=== PATIENT | female | born 1970 | race Caucasian/White ===

== ENCOUNTER 2019-06-17 23:53 | Emergency (ER) | payer BC, SELFPAY ==
--- NOTE | ~2019-06-17 | CT_ITS ---
EXAMINATION: CT abdomen pelvis w con DATE: 06/18/2019 00:58 INDICATION: Lower abdominal pain. TECHNIQUE: Computed tomography (CT) of the abdomen and pelvis was performed with 100 mL Omnipaque 350 intravenous contrast. Automated exposure control and iterative reconstruction technique were employe d. The dose-length product was 1182.55 mGy-cm. COMPARISON: None. FINDINGS: The visualized portions of the lung bases demonstrate mild atelectasis. No pleural effusion . The heart size is normal. No pericardial effusion. Pectus excavatum is noted. There is a 9 mm hypoa ttenuated mass in the liver, likely benign. The gallbladder, spleen, pancreas, adrenal glands, and ri ght kidney are normal. There is severe atrophy of left kidney. There are no dilated loops of bowel. T he appendix is not visualized. There are no pathologically enlarged lymph nodes. There is trace pelvi c ascites. There is mild lumbar spondylosis and moderate thoracic spondylosis. IMPRESSION: 1. Severe atrophy of left kidney. Reviewed, dictated and finalized at location A.
[2019-06-17 23:57] VITALS: BP 151/91; PULSE 78; RESP 18; TEMP 36.3; O2SAT 98
--- NOTE | 2019-06-18 00:18 | ED.ABDPAIN ---
HPI - Abdominal Pain General Chief Complaint: Abdominal Pain Stated Complaint: abd pain Time Seen by Provider: 06/18/19 00:17 Source: patient Mode of arrival: ambulatory Limitations: no limitations History of Present Illness HPI narrative: Patient is a 48-year-old female who presents for evaluation of lower abdominal pain. Patient reports acute onset of pain approximately 4 hours ago. Patient reports pain in the lower part of her abdomen with radiation to her back. Pain initially started on the left lower abdomen, suprapubic area, now pain does not seem to be quite as severe. Initially described as sharp, stabbing in nature. No associated fever, chills, nausea or vomiting. No diarrhea or constipation. Patient had a normal bowel movement earlier this evening. No abdominal distention. Patient does have a history of ovarian cysts. Related Data Allergies Allergy/AdvReac Type Severity Reaction Status Date / Time No Known Allergies Allergy Verified 06/18/19 00:06 Review of Systems Review of Systems: Narrative: CONSTITUTIONAL: Denies fever, chills, or sweats. ENT: Denies rhinorrhea, congestion, sore throat, or otalgia. CARDIOVASCULAR: Denies chest pain, palpitations, or edema. RESPIRATORY: Denies cough or dyspnea. GASTROINTESTINAL: Reports lower abdominal pain, denies nausea, vomiting or diarrhea GENITOURINARY: Denies dysuria or hematuria. SKIN: Denies rash or itching. MUSCULOSKELETAL: Denies back pain, joint pain, or myalgia. NEUROLOGIC: Denies headache, numbness, or weakness. [facility] Past Medical History Medical History Ovarian cyst Surgical History Surgical History History of hysterectomy Social History Social History (Updated 06/18/19 @ 00:34 by Kassie Finney MD) Smoking status: Never smoker Alcohol intake: never Substance use: never Living arrangements: with family Gender identity (if verbalized by the patient): Female Exam Narrative: Exam Narrative: GENERAL: Awake, alert, conversant HEAD: Normocephalic, atraumatic. EYES: PERRLA and EOMI. ENT: Nares clear, no rhinorrhea or epistaxis. Mucous membranes moist. NECK: Supple. CHEST: No respiratory distress, breathing even and non labored HEART: Regular rate, sinus rhythm ABDOMEN:Non distended, not severely tender on exam, nonrigid, no guarding EXTREMITIES: Normal range of motion. No edema. SKIN: Warm, dry, no rash. NEURO:No focal deficits. Alert and oriented x3 Course Vital Signs Vital signs: Vital Signs Temperature 36.3 C L 06/17/19 23:57 Pulse Rate 78 06/17/19 23:57 Respiratory Rate 18 06/17/19 23:57 Blood Pressure 151/91 H 06/17/19 23:57 Pulse Oximetry 98 06/17/19 23:57 Temperature 36.3 C L 06/17/19 23:57 Pulse Rate 78 06/17/19 23:57 Respiratory Rate 18 06/17/19 23:57 Blood Pressure 151/91 H 06/17/19 23:57 Pulse Oximetry 98 06/17/19 23:57 MDM - Abdominal Pain MDM Narrative Medical decision making narrative: Patient's abdomen is soft without significant pain or signs of surgical abdomen on serial exams. Lab and imaging evaluations are reviewed and patient is felt to be a reasonable candidate for outpatient management. Patient was instructed as to limitations of imaging and lab evaluation and encouraged to return to the emergency department her primary physician for repeat exam in 12 hours if continued or worsening pain. Pain may be due to nonspecific gastritis, abdominal cramping pain. No UTI. Patient was discharged home, advised to return should her symptoms recur or worsen. Differential Diagnosis Differential diagnosis: Likely abdominal pain, calculus of kidney, constipation, diverticulitis, gastroenteritis and small bowel obstruction Lab Data Attestation: I reviewed the patient's lab results. Result diagrams: 06/18/19 00:16 06/18/19 00:17 Labs: Lab Results 05
[2019-06-18 00:23] LABS: Basophils Absolute Auto 0.1 K/mm3 (0.0-0.1); Basophils Percent Auto 0.7 % (0.2-1.2); Eosinophils Absolute Auto 0.1 K/mm3 (0-0.3); Eosinophils Percent Auto 1.6 % (0-4.4); Hematocrit 39.9 % (37.0-47.0); Hemoglobin 13.5 g/dL (12.0-15.0); Immature Granulocyte Absolute 0.02 K/mm3 (0.00-0.031); Immature Granulocyte Percent A 0.2 % (0-0.5); Lymphocytes Percent Auto 29.7 % (18.3-44.2); Mean Corpuscular HGB Conc 33.8 g/dl (32-36); Mean Corpuscular Hemoglobin 31.4 pg (26-34); Mean Corpuscular Volume 92.8 fl (80-100); Mean Platelet Volume 10.3 fl (7.4-10.4); Monocytes Absolute Auto 1.4 K/mm3 (0.1-0.6); Monocytes Percent Auto 16.4 % (2.6-8.5); Neutrophils Absolute Auto 4.5 K/mm3 (1.3-6.7); Neutrophils Percent Auto 51.4 % (45.5-73.1); Platelet Count Result 332 k/mm3 (150-375); Red Cell Distribution Width 12.9 % (11.5-14.5); White Blood Count 8.7 K/mm3 (4.5-10.0)
[2019-06-18] MEDS: SODIUM CHLORIDE 0.9% IV 1,000 ML 999 ML IV CONT (00:30)
[2019-06-18] MEDS: ONDANSETRON INJ 4 MG/2 ML VIAL IV PUSH (00:31)
[2019-06-18] MEDS: MORPHINE SULFATE 4 MG/ML INJ IV PUSH (00:31)
[2019-06-18 00:34] LABS: Add Urine Microscopic? YES; Amorphous Sediment Urine Few; Appearance Urine Cloudy (Clear); Bacteria Urine 1+ /hpf; Bilirubin Urine Negative (Negative); Blood Urine Negative (Negative); Color Urine Yellow (Yellow); Glucose Urine UA Negative (Negative); Ketones Urine Negative (Negative); Leukocyte Esterase Ur Negative LEU/UL (Negative); Mucus Urine Rare /lpf; Nitrate Urine Negative (Negative); Protein Urine 1+ mg/dL (Negative); RBC Urine 0-2 /hpf (0-2); Specific Grav Ur 1.018 (1.001-1.035); Squamous Epithelial Cell Urine Many /hpf (Few); Urobilinogen Urine Negative mg/dL (<2.0); WBC Urine 0-3 /hpf
[2019-06-18 00:38] LABS: Alanine Aminotransferase 15 U/L (4-35); Albumin Level 3.8 g/dL (3.5-5.1); Alkaline Phosphatase 79 U/L (38-126); Aspartate Amino Transferase 24 U/L (14-36); Bilirubin,Total 0.3 mg/dL (0.2-1.3); Blood Urea Nitrogen 15 mg/dL (7-17); Calcium 8.8 mg/dL (8.4-10.2); Carbon Dioxide 26 mmol/L (22-30); Chloride 105 mmol/L (98-107); Estimated CRCL calculation 79 ml/min; Estimated Glomerular Filt Rate > 60; Glucose 98 mg/dL (65-105); Lipase 92 U/L (23-300); Potassium 3.9 mmol/L (3.4-5.0); Sodium 136 mmol/L (137-145)
--- NOTE | 2019-06-18 02:10 | PC.NURSE ---
Patient requesting more pain medication prior to being discharged, Dr Finney aware. Verbal order for Percocet 5/325 received.
[2019-06-18 02:15] VITALS: BP 124/70; PULSE 66; RESP 18; O2SAT 98
== END 2019-06-18 02:16 | disposition home or self-care (01) ==
PROVIDERS: Emergency Provider Emergency Medicine; PCP Family Medicine
DX: R10.84 Generalized abdominal pain (principal)
CPT/HCPCS: 36415; 74177; 80053; 81001; 83690; 85025; 96361; 96365; 96375; 99284; A9270; J0131; J2270; J2405; J7030; Q9967

== ENCOUNTER → 2020-01-11 16:23 | Outpatient (CLI) | payer BC, SELFPAY ==
--- NOTE | ~2020-01-11 | US_ITS ---
EXAMINATION: US thyroid DATE: 01/11/2020 16:45 INDICATION: Nontoxic goiter. TECHNIQUE: Multiple ultrasound images of the thyroid were obtained. COMPARISON: None. FINDINGS: The right thyroid lobe measures 5.1 x 1.7 x 1.4 cm. The left thyroid lobe measures 4.8 x 1.4 x 1.5 c m. In the right thyroid lobe, there is a 5 mm solid, hyperechoic, xifku-tezi-yksu nodule with smooth margin and macrocalcification (TI-RADS TR4). IMPRESSION: 1. Small right thyroid nodule, likely not clinically significant. No follow-up is needed. Reviewed, dictated and finalized at location A. E I INSTRUCTIONAL ASSISTANT
== END ==
PROVIDERS: PCP Family Medicine; Visit Provider Family Medicine
DX: E04.9 Nontoxic goiter, unspecified (principal)
CPT/HCPCS: 76536

== ENCOUNTER → 2020-09-30 10:43 | Outpatient (CLI) | payer BC, SELFPAY ==
--- NOTE | ~2020-09-30 | MR_ITS ---
EXAMINATION: MR abdomen wo/w con DATE: 09/30/2020 12:16 INDICATION: Liver mass. TECHNIQUE: Magnetic resonance imaging (MRI) of the abdomen was performed without and with 19 mL Multi Katrin intravenous contrast. Sequences included coronal T2-weighted FS FSE, coronal and axial FS FIEST A, axial T2-weighted FSE, coronal LAVA-flex, axial STIR FSE, axial DWI, axial dual-echo T1-weighted F SPGR, and axial LAVA. Postcontrast sequences included coronal LAVA-flex and a time course of axial LA VA. COMPARISON: CT abdomen and pelvis 06/18/2019 FINDINGS: There is a 15 mm mass in right hepatic lobe with interrupted peripheral puddling of contrast, consist ent with a hemangioma. The gallbladder, spleen, pancreas, adrenal glands, and right kidney are normal . There is severe atrophy of left kidney. There are no dilated loops of bowel. There are no pathologi mary enlarged lymph nodes. There is no free intraperitoneal fluid. IMPRESSION: 1. 15 mm hemangioma in the liver. Reviewed, dictated and finalized at location A.
--- NOTE | ~2020-09-30 | MR_ITS ---
EXAMINATION: MR brain/brain stem wo/w con DATE: 09/30/2020 12:16 INDICATION: Headache. Hypertension. TECHNIQUE: Magnetic resonance imaging (MRI) of the brain and brainstem was performed without and with 19 mL MultiHance intravenous contrast. Sequences included sagittal and axial T1-weighted FSE, axial diffusion-weighted FS EPI, axial T2*-weighted GRE, axial T2-weighted FLAIR Propeller, and axial T2-we ighted Propeller. Postcontrast sequences included axial, sagittal, and coronal T1-weighted FSE. Appar ent diffusion coefficient (ADC) maps were created. COMPARISON: Head CT 09/22/2020 FINDINGS: There is no acute ischemic infarct, intracranial hemorrhage, abnormal mass lesion. The vent ricles are normal in size. The mastoid air cells are normal. There is mucosal thickening in the paran harshil sinuses. The orbits are normal. IMPRESSION: 1. Normal brain. Reviewed, dictated and finalized at location A. IMPRESSION: 1. Normal brain.
[2020-09-30 11:10] LABS: Estimated Glomerular Filt Rate 58
== END ==
PROVIDERS: PCP Family Medicine; Visit Provider Family Medicine
DX: R51.9 Headache, unspecified (principal); R93.89 Abnormal findings on diagnostic imaging of other specified body structures; K76.9 Liver disease, unspecified; N26.1 Atrophy of kidney (terminal); I10 Essential (primary) hypertension; D18.03 Hemangioma of intra-abdominal structures
CPT/HCPCS: 70553; 74183; A9577

== ENCOUNTER → 2020-11-11 07:51 | Outpatient (CLI) | payer BC, SELFPAY ==
--- NOTE | ~2020-11-11 | US_ITS ---
EXAMINATION: US retroperitoneal duplex ltd DATE: 11/11/2020 08:34 INDICATION: Left renal atrophy TECHNIQUE: Multiple grayscale, color Doppler, and pulsed Doppler images of the kidneys and renal bonnie adarsh were obtained. COMPARISON: MRI dated 09/30/[address] dated 06/18/2019 FINDINGS: The aorta peak systolic velocity is 121 cm/s. The right renal artery peak systolic velocity is 88 cm/ s in the proximal segment, 139 cm/s in the mid segment, and 448 cm/s in the distal segment. The left renal artery is not visualized likely due to the chronic severe left renal atrophy. IMPRESSION: 1. Markedly elevated right renal artery peak systolic velocities consistent with a >50-60% stenosis. On review of prior CT and MRI studies there does not appear to be a corresponding hemodynamically si gnificant stenosis and the elevated velocities may be artifactual due to the tortuosity of the vessel s evident on prior imaging and increased flow due to the contralateral left renal atrophy with no dis cernible left renal artery. Reviewed, dictated and finalized at location B. IMPRESSION: 1. Markedly elevated right renal artery peak systolic velocities consistent wi th a >50-60% stenosis. On review of prior CT and MRI studies there does not sander ear to be a corresponding hemodynamically significant stenosis and the elevated velocities may be artifactual due to the tortuosity of the vessels evident on prior imaging and increased flow due to the contralateral left renal atrophy wi th no discernible left renal artery.
== END ==
PROVIDERS: PCP Family Medicine; Visit Provider Family Medicine
DX: N26.1 Atrophy of kidney (terminal) (principal); R93.422 Abnormal radiologic findings on diagnostic imaging of left kidney
CPT/HCPCS: 93976

== ENCOUNTER → 2020-12-17 13:30 | Outpatient (CLI) | payer BC, SELFPAY ==
--- NOTE | ~2020-12-17 | CT_ITS ---
EXAMINATION: CTA abdomen pelvis DATE: 12/17/2020 14:30 INDICATION: Atherosclerosis of the renal artery TECHNIQUE: Computed tomographic angiography (CTA) of the abdomen and pelvis was performed with 100 mL Omnipaque-350 intravenous contrast. Maximum intensity projection 3D-reconstructions of the aorta and other arteries were constructed by the technologist on a separate workstation. The dose-length produ ct (DLP) was 926.83 mGy-cm. Automated exposure control and iterative reconstruction technique were em ployed. COMPARISON: 06/18/2019 FINDINGS: Minimal dependent atelectasis is present in the lung bases. The heart size is normal. A sub tle 9 mm lesion in the posterior right hepatic lobe demonstrates peripheral nodular enhancement, cons istent with a hemangioma. The spleen, pancreas, gallbladder, and adrenal glands are normal. The right kidney is unremarkable. The left kidney is atrophic. No pathologically enlarged abdominal or pelvic lymph nodes are identified. There is no free intraperitoneal gas or evidence of bowel obstruction. Th ere is moderate lower thoracic spondylosis. A fat-containing umbilical hernia is noted. There is no aneurysm or dissection of the abdominal aorta. The right renal artery arises directly fro m the celiac axis. The pancreaticoduodenal artery arises from the left hepatic artery. The superior m esenteric artery and inferior mesenteric artery are unremarkable. A single right renal artery is pres ent. There is no significant atherosclerosis or hemodynamically significant stenosis. No left renal a rtery is identified. The common, external, internal iliac arteries and femoral arteries are unremarka ble. IMPRESSION: 1. Chronic atrophy of the left kidney without an identifiable left renal artery. Otherwise unremarkab le CTA of the abdomen and pelvis. Reviewed, dictated and finalized at location B. HORSE HITCH DRIVER IMPRESSION: 1. Chronic atrophy of the left kidney without an identifiable left renal artery . Otherwise unremarkable CTA of the abdomen and pelvis.
[2020-12-17 13:49] LABS: Estimated Glomerular Filt Rate 52
== END ==
PROVIDERS: PCP Family Medicine
DX: I70.1 Atherosclerosis of renal artery (principal)
CPT/HCPCS: 74174; Q9967

== ENCOUNTER 2024-09-07 14:19 | Outpatient (CLI) | payer BC, SELFPAY ==
--- NOTE | ~2024-09-07 | MM_ITS ---
EXAMINATION: MM screening keegan BI w josue HISTORY: Screening TECHNIQUE: Craniocaudal and mediolateral oblique 3-D tomosynthesis images were obtained and synthetic 2-D images were generated. CAD analysis was submitted and interpreted. COMPARISON: No prior mammogram is available for comparison at this institution. BREAST PARENCHYMAL COMPOSITION: Not dense: There are scattered areas of fibroglandular density. FINDINGS: There is no mammographic evidence for malignancy in the right breast. There is a small low- density mass in the outer aspect of the left breast at approximately the 3:00 position, middle third. There are no suspicious calcifications or architectural distortion. There are changes of bilateral b reast reduction surgery. IMPRESSION: 1. Small low-density left breast mass. 2. Additional mammographic views and possible breast ultrasound are recommended. BI-RADS Category 0: Incomplete: Needs additional imaging evaluation. Reviewed, dictated and finalized at location B. IMPRESSION: 1. Small low-density left breast mass. 2. Additional mammographic views and possible breast ultrasound are recommended . BI-RADS Category 0: Incomplete: Needs additional imaging evaluation.
--- OUTSIDE RECORDS SUMMARY | 2024-09-07 14:22 | XMS_ITS | Clinical Summary ---
Author Organization [facility] Address [address] [address] Care Team Providers Care Subsurface Augmentee Operator Name Role Phone Unavailable Primary Care Provider Unavailabl e Source Comments [facility],non-owned Affiliates and Associated Physician Practices is amultiple site organization consisting of ambulatory clinics and hospital sitesin [place], [place], [place] and [place]. This disclosure is being madepursuant to the Care Everywhere program and may not contain all information available regarding this patient. Last updated 17.[facility] Social History Tobacco Use Types Packs/Day Years Used Date Smoking Tobacco: Never Assessed Comments Unknown Sex and Gender Information Value Date Recorded Sex Assigned at Not on file Legal Sex Female 9:56 AM CDT Gender Identity Not on file Sexual Orientation Not on file Plan of Treatment Health Maintenance Due Date Last Done Comments COLOGUARD (AGES 45-75) - COL ON CA SCREENING 1970 COLON MONITORING 1968 COLONOSCOPY - COLON CA SCREENING 1968 CT COLONOGRAPHY - COLON CA SCREENING 1970 Colorectal Cancer Screening 1970 FIT - COLON CA SCREENING 1968 FLEX SIG - COLON CA SCREENING 1968 LIPID TESTING 1970 MAMMOGRAM 1968 HIV SCREENING 08/02/1983 HEPATITIS C SCREENING 07/28/1986 DTAP/TDAP/TD VACCINES (1 - Tdap) 08/02/1987 HEPATITIS B VACCINE (1 of 3 - 19+ 3-dose series) 08/02/1987 PAP SMEAR 1989 PNEUMOCOCCAL VACCINE 50+ (1 of 1 - PCV) 2018 ZOSTER VACCINE (1 of 2) 2018 COVID-19 VACCINE (1 2023-2 5 season) 2023 DEPRESSION SCREENING 02/08/2024 INFLUENZA VACCINE (#1) 2024 HIB VACCINE Aged Out No longer eligi ble based on patient's age to complete this topic HPV VACCINE Aged Out No longer eligi ble based on patient's age to complete this topic MENINGOCOCCAL (Group B) VACC INE SHARED DECISION-MAKING Aged Out No longer eligibl e based on patient's age to complete this topic MENINGOCOCCAL GROUPS A/C/Y/W VACCINE Aged Out No longer eligible b ased on patient's age to complete this topic Insurance [facility] Address: [facility] [address] [place] [address]
--- OUTSIDE RECORDS SUMMARY | 2024-09-07 14:22 | XMS_ITS | Encounter Summary ---
Author Organization [facility] Address [address] [place] [address] Care Team Providers Care Motion Picture Printer Name Role Phone Dominique Lorenzo MD Primary Care Provider Encounter Details Date Type Department Care Team (Late st Contact Info) Description 04/03/2021 [facility], [address] [address] Camelia Moses MA Social History Tobacco Use Types Packs/Day Years Used Date Smoking Tobacco: Never Smokeless Tobacco: Never Alcohol Use Standard Drinks/Week Comments Yes 0 (1 standard drink = 0.6 oz pur e alcohol) occasional Comments Unknown Sex and Gender Information Value Date Recorded Sex Assigned at Not on file Legal Sex Female 8:21 PM CDT Gender Identity Not on file Sexual Orientation Not on file documented as of this encounter Plan of Treatment Not on file documented as of this encounter Procedures Procedure Name Priority Date/Time Associated Diagnosis Comments BASIC METABOLIC PANEL Routine 11/06/2020 D-DIMER, QUANTITATIVE Routine 11/06/2020 documented in this encounter Results * D-DIMER, QUANTITATIVE (11/06/2020) D-DIMER 0.36 11/06/2020 [facility] Final Result * BASIC METABOLIC PANEL (11/06/2020) SODIUM S/P/B 141 POTASSIUM S/P/B 4.5 CO2 26 CHLORIDE S/P/B 102 GLUCOSE 89 mg/dL CALCIUM S/P/B 9.5 BUN 13 CREATININE S/P/B 0.93 0.5 - 1.0 EGFR AFR. AMER. 82 <=90 EGFR NON-AFR. AMER. 71 <=90 11/06/2020 [facility] Final Result documented in this encounter Visit Diagnoses Not on filedocumented in this encounter Care Teams Motion Picture Printer Relationship Specialty Start Date End Date Dominique Lorenzo MD [address] [place] [address] PCP - General FAMILY PRACTICE 11/20/20 documented as of this encounter
--- OUTSIDE RECORDS SUMMARY | 2024-09-07 14:22 | XMS_ITS | Patient Health Record ---
Author Organization [facility] Address [address] [place] [address] Care Team Providers Care Manager Documentation Name Role Phone Dr. Dominique Lorenzo Primary Care Provider [phone] Jolanta Tavera Unavailable [phone] Migration, Provider Unavailable Unavailable Allergies No Known Allergies Results Component Value Reference Range Notes Strep Gp A, DNA Probe (Alere ) Reviewed date:04/16/2024 09:09:51 AM Interpretation:Negative Performing Lab: Notes/Report: Negative Reason For Referral No Information Medications Medication SIG (Take, Route, Frequency, Duration) Notes Start Date End Date Status Lisinopril 20 MG Tablet 1 tablet Oral da aisha; Duration: 90 days Active buPROPion HCl ER (XL) 300 MG Tablet Extended Release 24 Hour 1 tablet in the morning Orally Once a day; Duration: 90 days Active Levothyroxine Sodium 25 MCG Tablet 1 Oral every day; Duration: 90 days 10/13/2023 Active Simvastatin 10 MG Tablet 1 tablet Oral e very evening; Duration: 90 days 11/11/2023 Active Topiramate 25 MG Tablet 1 tablet at bedt sonia for 1 week and then increase 2 tablets Orally at bedtime; Duration: 30 days 07/27/2024 Active Estradiol 0.1 MG/24HR Patch Twice Weekly Transdermal; Duration: 84 Days Active Immunizations Vaccine Route Administration Date Status Comme nts Influenza, quadrivalent (IIV4), split virus, 6-35 months dosage IM Intramuscular 12/11/2020 Administered ,sourcename : N ew immunization record ,immstatus : Complete Influenza, quadrivalent (IIV4), split virus, 6-35 months dosage IM Intramuscular 12/02/2022 Administered ,sourcename : N ew immunization record ,immstatus : Complete Influenza, quadrivalent (IIV4), split virus, 6-35 months dosage Unknown 12/14/2023 Administered ,sourcename : Pharmacy Source C Code: : Pfizer-Biontech Covid-19 Vaccine 1st dose Unknown 03/14/2020 Administered ,sourcename : Historical information -from other registry Source VFC Code: : Pfizer-Biontech Covid-19 Vaccine 1st dose Unknown 04/11/2020 Administered ,sourcename : Historical information -from other registry Source VFC Code: : Shingrix Unknown 03/02/2020 Administered Shingrix Unknown 08/18/2020 Administered Tdap Unknown 01/06/2018 Administered ,sourcename : Historical information -from other registry Source VFC Code: : Social History Tobacco Use: Social History Observation Description Date Details (start date - stop date) Never Smoker NA - NA Social History Tobacco Use: Social Info Question Answer Notes Tobacco Control (Standard) Tobacco use: Nonsmoker Problems Problem Type SNOMED Code ICD Code Onset Dates Problem Status W/U Status Risk Notes Problem Hypothyroidism (18481785) Hypothyroidism , unspecified (E03.9) Active confirmed Problem Hyperlipidemia (21373423) Hyperlipidemia , unspecified (E78.5) Active confirmed Problem Recurrent oral aphthae (632151433) 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) Active confirmed Problem Thoracic spondylosis without myelopathy (357415995) Spondylosis without myelopathy or radiculopathy, thoracic region (M47.814) 020 Active confirmed noted on CT from 06/2019 Problem Cervicalgia (02135090) Cervicalgia (M54.2) 023 Active confirmed Problem Pain in right leg (802417597) Pain in right leg (M79.604) Active confirmed Problem Nephrosclerosis (54190785) 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) Active confirmed was referred to cardio and was to get evaled with MRIoptimized for lumenal stenosis Problem Abnormal findings on diagnostic imaging of breast (014607850) Other abnormal and inconclusive findings on diagnostic imaging of breast (R92.8) Active confirmed Problem Dietary management surveillance (067693451) Dietary counseling and surveillance (Z71.3) Active confirmed Problem Hormone replacement therapy (347536013) Hormone replacement therapy (postmenopausa l) (Z79.890) Active confirmed Problem Hemangioma of intra-abdominal structures (779647721) 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) Active confirmed Problem Depression (822796072) Depression, unspecified (F32.A) Active confirmed Problem Imaging result abnormal (974556386) Abnormal findings on diagnostic imaging of other specified body structures (R93.89) Active confirmed Problem Pain (56849293) Pain, unspecified (R52) Active confirmed Problem Hypertrophy of breast (437964825) Hypertrophy of breast (N62) Active confirmed Problem Acquired spondylolisthesis (857881932) Spondylolysis, 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) Active confirmed Problem Arthralgia of the ankle and/or foot (290422238) Pain in right ankle and joints of right foot (M25.571) Active confirmed Problem Pain of right knee region (finding) (487230291174298) Pain in right knee (M25.561) Active confirmed Problem Liver disease (352526691) Liver disease, unspecified (K76.9) Active confirmed Problem Essential hypertension (14817404) Essential (primary) hypertension (I10) Active confirmed Problem Major depression, single episode, in complete remission (67117062) Major depressive disorder, single episode, in full remission (F32.5) Active confirmed Vital Signs Heart Rate 84 /min 07/27/2024 Temperature 97.4 degrees Fahrenheit 07/27/2024 Respiratory Rate 18 /min 07/27/2024 Blood pressure diastolic 82 mm Hg 07/27/2024 Oximetry 98 % 07/27/2024 Height-cm 172.72 cm 07/27/2024 Weight-kg 97.61 kg 07/27/2024 Height 68.00 in 07/27/2024 Blood pressure systolic 134 mm Hg 07/27/2024 Weight 215.2 lbs 07/27/2024 BMI 32.72 kg/m2 07/27/2024 Encounters Encounter Location Date Provider Diagnosis [address] [address] 12/14/2023 Provider Migration [address] [address] 02/03/2024 Dr. Dominique Lorenzo Essential (primary) hypertension I10 ; Hyperlipidemia, unspecified E78.5 ; Hypothyroidism, unspecified E03.9 ; Prediabetes R73.03 ; Acute cough R05.1 and Acute non-recurrent sinusitis, unspecified location J01.[address] [address] 04/16/2024 Jolanta Tavera Acute sore throat J02.[address] [address] 07/27/2024 Jolanta Tavera Essential (primary) hypertension I10 ; Wellness examination Z00.00 ; Hyperlipidemia, unspecified E78.5 ; Hypothyroidism, unspecified E03.9 ; Prediabetes R73.03 ; Weight gain R63.5 and Menopausal symptom N95.[address] [address] 01/07/[address] [address] 01/08/[address] [address] 07/06/2024 Dr. Dominique Lorenzo Hypothyroidism, unspecified E03.9 ; Hyperlipidemia, unspecified E78.5 ; Essential (primary) hypertension I10 ; Liver disease, unspecified K76.9 and Encounter for general adult medical examination without abnormal findings Z00.00 Assessments Encounter Date Diagnosis (ICD Code) Assessment Notes Treatment Notes Treatment Clinical Notes Section Notes 04/16/2024 Acute sore throat (ICD-10 - J02.9) Sore throat for a few days. Strep test is negative. Discussed mtaht most likley she has a viral illness that will start to improve after 4-5 days. May treat sx's w/OTC medication. Will give one time dose of dex to treat pharyngitis. 07/06/2024 Hypothyroidism, unspecified (ICD-10 - E03.9) 02/03/2024 Hyperlipidemia, unspecified (ICD-10 - E78.5) 02/03/2024 Essential (primary) hypertension (ICD-10 - I10) [facility] [place] 07/27/2024 Essential (primary) hypertension (ICD-10 - I10) -BP is controlled at this time. Continue lisinopril m 07/27/2024 Wellness examination (ICD-10 - Z00.00) -Routine wellness exam, reviewed labwork - Colonoscopy up to date as of November 2023 - Due for mammogram following breast reduction surgery in December 2024 02/03/2024 Hypothyroidism, unspecified (ICD-10 - E03.9) 07/27/2024 Hyperlipidemia, unspecified (ICD-10 - E78.5) -Tolerating simvastatin. No changes needed 07/06/2024 Hyperlipidemia, unspecified (ICD-10 - E78.5) 07/06/2024 Essential (primary) hypertension (ICD-10 - I10) 02/03/2024 Prediabetes (ICD-10 - R73.03) 07/27/2024 Hypothyroidism, unspecified (ICD-10 - E03.9) -Levothyroxine 25mcg 07/27/2024 Prediabetes (ICD-10 - R73.03) -Last A1c was 5.7 and improved to 5.4 -Continue to work on [employer] 02/03/2024 Acute cough (ICD-10 - R05.1) 07/06/2024 Liver disease, unspecified (ICD-10 - K76.9) 07/06/2024 Encounter for general adult medical examination without abnormal findings (ICD-10 - Z00.00) 02/03/2024 Acute non-recurrent sinusitis, unspecified location (ICD-10 - J01.90) 07/27/2024 Weight gain (ICD-10 - R63.5) - Weight gain and difficulty losing weight, likely multifactorial with possible contribution from stress, menopause, and current medications. - Initiate topiramate 25 mg at bedtime for one week, then increase to 50 mg at bedtime. Trial for three months to assess efficacy and tolerability. Monitor for side effects. Discussed other pharmacologic options (semaglutide, tirzepatide, metformin, naltrexone, bupropion, but not recommended phentermine or Qsymia due to blood pressure medication). -Encouraged lifestyle modifications including increased physical activity, dietary changes, stress management, and use of motivational resources (e.g., podcasts). m 07/27/2024 Menopausal symptom (ICD-10 - N95.1) - Ongoing hot flashes, mood changes, fatigue, and weight gain possibly related to menopause and current estrogen dose. Ovaries likely no longer producing estrogen. - Consideration of adjusting estradiol dose or formulation. Recommendation to consult collection card clerk (Rena Velazquez at [place]) regarding possible dose adjustment or alternative hormone therapy options (including testosterone or progesterone pellets if interested). Plan to eventually taper off estrogen in the future. m 02/03/2024 Other Post-surgical recovery from breast reduction: - Recovery from breast reduction surgery on December 29, 2023, is progressing well. Pain is managed with ibuprofen and Tylenol, with minimal use of oxycodone. Some numbness and scar tissue present, with a lump and skin bubbles noted. - Continue scar massage. Monitor for changes in scar tissue and skin bubbles. Persistent cough and congestion: - Persistent cough and congestion likely due to sinusitis or atypical pneumonia, possibly exacerbated by post-surgical narcotics use and potential micro-aspiration. - Prescribe augmentin for sinus infection and potential aspiration issues from post anesthesia time. Use nasal steroid spray (flonase) to alleviate sinus congestion. Follow-up if symptoms persist beyond two weeks or worsen. - Risks and side effects: Potential for diarrhea or yeast infection from augmentin. Patient advised to contact if side effects occur. Pre-diabetes: - A1C level of 5.7% in July 2023 indicates pre-diabetes. - Order labs to monitor A1C and fasting sugar levels. Labs to be done at patient's convenience, fasting preferred but not required. Medication management: - Current medications include lisinopril and estradiol patch. No issues reported with current regimen. - Provide three-month supply with additional refills to ensure continuity. Schedule follow-up appointment in July 2024. Vaccinations: - Up-to-date on flu vaccine. Shingles vaccine status unclear. - Verify shingles vaccine status through state system or [place]. Offer vaccine in future if not previously administered. Could have gotten it at [facility] possibly. Prescription - augmentin, large pill, for 10 days. Side effects: potential diarrhea, yeast infection. Instructions: take with food. - flonase nasal steroid spray, for eustachian tube and sinus relief. - Refills for all current medications sent to [facility] in [place], with a year's supply provided. Appointments - Follow-up appointment planned for July 2024. Plan Of Treatment Next Appt Details Provider Name:Jolanta dillard, 01/11/2025 09:00:00 AM, [address], [place], [address], [phone] Insurance Providers Payer Name Payer Address Payer Phone Subscriber Number Group Number Insured Name Patient Relationship to Insured Coverage Start Date Coverage End Date [employer] [address] [place] [address] [id number] Alaina Escalera Self - patient is the insured 2 Medical (General) History Medical History History ICD Code Hypothyroidism, unspecified E03.9 Hyperlipidemia, unspecified E78.5 Major depressive disorder, single episod e, in full remission F32.5 Essential (primary) hypertension I10 Liver disease, unspecified K76.9 Spondylolysis, lumbar region M43.06 Spondylosis without myelopathy or radicu lopathy, thoracic region M47.814 Cervicalgia M54.2 Atrophy of kidney (terminal) N26.1 Hypertrophy of breast N62 Hormone replacement therapy (postmenopau christina) Z79.890 Hemangioma of intra-abdominal structures D18.03 Recurrent oral aphthae K12.0 Pain in right knee M25.561 Pain in right ankle and joints of right foot M25.571 Pain in right leg M79.604 Pain, unspecified R52 Other abnormal and inconclusive findings on diagnostic imaging of breast R92.8 Dietary counseling and surveillance Z71. 3 Abnormal findings on diagnostic imaging of other specified body structures R93.89 Depression, unspecified F32.A Surgical History Surgery Date(Month/Year) Hysterectomy (partial) 12/20/2019 breast reduction surgery 12/29/2023 ANKLE ARTHROSCOPY/SURGERY left ankle fus ion-pin- as child
--- OUTSIDE RECORDS SUMMARY | 2024-09-07 14:22 | XMS_ITS | Encounter Summary ---
Author Organization [facility] Address [address] [place] [address] Care Team Providers Care [employer] Registrar Name Role Phone Unavailable Primary Care Provider Unavailabl e Encounter Details Date Type Department Care Team (Late st Contact Info) Description 11/05/2021 Lab Requisition [facility] [address] [place] [address] Otto Griffin MD [facility] DERMAT[facility] [address] [place] [phone] Social History Tobacco Use Types Packs/Day Years [...] Procedure Name Priority Date/Time Associated Diagnosis Comments DERMATOPATHOLOGY Routine 11/04/2021 12:0 0 AM CDT documented in this encounter Results * DERMATOPATHOLOGY (11/04/2021 12:00 AM CDT) Case Report Dermatopathology Report Case: [id number] Authorizing Provider: Otto Griffin MD Collected: 11/04/2021 12:00 AM Ordering Location: [facility] Lab Received: 11/05/2021 10:10 AM Pathologist: Dara Whitney MD Specimen: Skin, left superior chest 09/30/202 2 4:17 PM CDT DERMATOPATHOLOGY LABORATORY Final Diagnosis Specimen A. SKIN, left superior chest: CHRONIC PERIFOLLICULITIS (L73.8) 2 4:17 PM CDT DERMATOPATHOLOGY LABORATORY at 1617 CDT Clinical History Basal Cell Carcinoma 2 4:17 PM CDT DERMATOPATHOLOGY LABORATORY Gross Description Specimen A: Received is one formalin filled container labeled with the patient's name and designated left superior chest. The specimen consists of a shave biopsy measuring [id number]. Jar 0. 2 4:17 PM CDT DERMATOPATHOLOGY LABORATORY Microscopic Description Specimen A. SKIN, left superior chest: Sections show a perifollicular lymphohistiocytic infiltrate. 2 4:17 PM CDT DERMATOPATHOLOGY LABORATORY Disclaimer An external and internal positive and negative controls are appropriate for the histochemical, immunohistochemical and immunofluorescence stain(s) in this case (if any), except where stated explicitly. The performance characteristics of the stain(s) cited in this report were developed and its performance characteristic determined by the Dermatopathology Laboratory at [facility], directed by Dr. Archana Whitney. These tests need not be, and therefore are not, approved by the [place] Food and Drug Administration. The tests are used for clinical purposes. Billing Codes Specimen Charges Stain Charges 55624 1 2 4:17 PM CDT DERMATOPATHOLOGY LABORATORY Embedded Images 2 4:17 PM CDT DERMATOPATHOLOGY LABORATORY Pathology/Cytolog y TISSUE SPECIMEN FROM SKIN / Unknown 11/04/2021 11/05/2021 10:10 AM CDT us Otto Griffin MD LAB - PATHOLOGY/CYTOLOGY OSITO GAMEZ Final Result DERMATOPATHOLOGY LABORATORY [facility] - Department of Dermatology [address] [place] [address], [facility] [phone] documented in this encounter Visit Diagnoses Not on filedocumented in this encounter
--- OUTSIDE RECORDS SUMMARY | 2024-09-07 14:22 | XMS_ITS | Clinical Summary ---
Author Organization [facility] Address [address] [place] [address] Care Team Providers Care Costumed Character Entertainer Name Role Phone Dominique Lorenzo MD Unavailable Dominique Lorenzo MD Primary Care Provider Allergies No known active allergies Medications buPROPion XL (WELLBUTRIN XL) 300 mg 24 hr tabletIndications:A nxiety with Depression Take 1 tablet (300 mg total) by mouth every morning 9 Active estradioL (VIVELLE-DOT) 0.1 mg/24 hrIndications:horom one Place 1 patch on the skin 2 (two) times a week 1 Active levothyroxine (SYNTHROID) 25 mcg tabletIndications:h ypothyroidism Take 1 tablet (25 mcg total) by mouth every morning 1 Active lisinopriL (PRINIVIL,ZESTRIL) 20 mg tabletIndications:h ypertension Take 1 tablet (20 mg total) by mouth every morning 1 Active simvastatin (ZOCOR) 10 mg tabletIndications:h yperlipidemia Take 1 tablet (10 mg total) by mouth nightly Active multivitamin tabletIndications:V itamin Deficiency Prevention Take 1 tablet by mouth every morning Active cholecalciferol, vitamin D3, (VITAMIN D3 ORAL)Indications:sherwood pplement Take 1 capsule by mouth every morning Active ascorbic acid (VITAMIN C ORAL)Indications:sherwood pplement Take 1 tablet/chew tab by mouth every morning Active oxyCODONE (ROXICODONE) 5 mg immediate release tabletIndications:P ain Take 1 tablet (5 mg total) by mouth every 4 (four) hours as needed for pain 20 tablet 4 Active acetaminophen (TYLENOL) 500 mg tablet Take 1 tablet (500 mg total) by mouth every 8 (eight) hours 60 tablet 1 4 Active ibuprofen (ADVIL,MOTRIN) 600 mg tablet Take 1 tablet (600 mg total) by mouth 3 (three) times a day 60 tablet 1 4 Active cyclobenzaprine (FLEXERIL) 10 mg tablet Take 1 tablet (10 mg total) by mouth 3 (three) times a day as needed for muscle spasms 20 tablet 4 Active ondansetron ODT (ZOFRAN-ODT) 4 mg disintegrating tablet Take 1 tablet (4 mg total) by mouth every 8 (eight) hours as needed for nausea or vomiting 20 tablet 4 Active fluocinonide (LIDEX) 0.05 % ointment APPLY A PEA-SIZED AMOUNT TO THE AFFECTED AREA THREE TIMES DAILY Active Active Problems Problem Noted Date Diagnosed Date Macromastia 10/14/2023 Essential (primary) hypertension 12/11/2020 Hyperlipidemia, mixed 12/11/2020 Cyst of ovary 07/19/2018 Overview (01/10/2024): Unspecified ovarian cyst, right side; Progress: Stable Added By: Alpa Moody Add to Current Problems: NO ProblemStatus: Resolve Acute vaginitis 09/19/2015 Overview (01/10/2024): Acute vaginitis; Progress: Stable Added By: Rena Velazquez Add to Current Problems: NO ProblemStatus: Resolve Bacterial vaginosis; Location: None Progress: Stable Added By: Rena Velazquez Add to Current Problems: YES ProblemStatus: Resolve Candidal vulvovaginitis 09/19/2015 Overview (01/10/2024): Yeast vaginitis; Location: None Progress: Stable Added By: Rena Velazquez Add to Current Problems: YES ProblemStatus: Resolve Yeast vaginitis; Progress: Stable Added By: Rena Velazquez Add to Current Problems: NO ProblemStatus: Resolve; Start Date : 03/19/2014 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 Overview (01/10/2024): MADIHA III; Progress: Stable Added By: Alpa Moody Add to Current Problems: NO ProblemStatus: Resolve External hemorrhoids 11/19/2014 Overview (01/10/2024): Hemorrhoids, external; Progress: Stable Added By: Rena Velazquez Add to Current Problems: NO ProblemStatus: Resolve Hemorrhoids, external; Location: None Progress: Stable Added By: Rena Velazquez Add to Current Problems: NO ProblemStatus: Current Pelvic and perineal pain 11/19/2014 Overview (01/10/2024): Pelvic and perineal pain; Progress: Stable Added By: Rena Velazquez Add to Current Problems: NO ProblemStatus: Resolve pelvic pain; Location: None Progress: Stable Added By: Marley Franklin Add to Current Problems: YES ProblemStatus: Resolve Residual hemorrhoidal skin tags 11/19/2014 Overview (01/10/2024): Residual hemorrhoidal skin tags; Progress: Stable Added By: Rena Velazquez Add to Current Problems: NO ProblemStatus: Resolve Menopausal symptom 12/12/2013 Overview (01/10/2024): Mely-menopausal symptoms; Location: None Progress: Stable Added By: Rena Velazquez Add to Current Problems: YES ProblemStatus: Resolve Atypical glandular cells on cervical Pap smear 0 03/06/2013 Overview (01/10/2024): PAP smear of cervix with atypical squamous cells cannot exclude high grade squamous lesion (ASC-H); Location: None Progress: Stable Added By: Elsa Hernandez Add to Current Problems: NO ProblemStatus: Resolve PAP smear of cervix with atypical squamous cells cannot exclude high grade squamous lesion (ASC-H); Location: None Progress: Stable Added By: Payton Shanks Add to Current Problems: NO ProblemStatus: Resolve; Start Date : 03/02/2013 Abnormal glandular Papanicolaou smear of cervix; Progress: Stable Added By: Otto Salazar Add to Current Problems: NO ProblemStatus: Resolve Menorrhagia 02/01/2013 Overview (01/10/2024): Menorrhagia; Location: None Progress: Stable Added By: Payton Shanks Add to Current Problems: NO ProblemStatus: Resolve Surgical History Surgery Date Site/Laterality Comments COLONOSCOPY 09/25/2018 HYSTERECTOMY 02/07/2011 - 02/07/2012 ANKLE FRACTURE SURGERY 02/07/1978 - 02/06/1979 Left Medical History Medical History Date Comments PONV (postoperative nausea and vomiting) Social History Tobacco Use Types Packs/Day Years Used Date Smoking Tobacco: Never Smokeless Tobacco: Never Tobacco Cessation:Counseling Given: Not Answered AUDIT-C Answer Date Recorded Q1: How often do you have a drink containing alcohol? Never 12/29/2023 Q2: How many drinks containi ng alcohol do you have on a typical day when you are drinking? Patient does not drink Q3: How often do you have si x or more drinks on one occasion? Never 12/29/2023 Personal Safety Answer Date Recorded Have you ever been in or are you currently in a harmful physical or emotional relationship or is someone making you feel afraid or unsafe? Denies 12/29/2023 Comments No Sex and Gender Information Value Date Recorded Sex Assigned at Not on file Legal Sex Female 8:12 PM WHOLESALE AND RETAIL MERCHANT Gender Identity Not on file Sexual Orientation Not on file Obstetrics History Last Filed Vital Signs Vital Sign Reading Time Taken Comments Blood Pressure 123/67 12/29/2023 3:10 PM WHOLESALE AND RETAIL MERCHANT Pulse 67 12/29/2023 3:10 PM WHOLESALE AND RETAIL MERCHANT Temperature 36.5 C (97.7 F) 12/29/2023 1:35 PM WHOLESALE AND RETAIL MERCHANT Respiratory Rate 12 12/29/2023 3:10 PM WHOLESALE AND RETAIL MERCHANT Oxygen Saturation 93% 12/29/2023 3:10 PM WHOLESALE AND RETAIL MERCHANT Inhaled Oxygen Concentration - - Weight 95.3 kg (210 lb) 12/29/2023 8:15 AM WHOLESALE AND RETAIL MERCHANT Height 172.7 cm (5' 8) 12/29/2023 8:15 AM WHOLESALE AND RETAIL MERCHANT Body Mass Index 31.93 12/29/2023 8:15 AM WHOLESALE AND RETAIL MERCHANT Plan of Treatment Health Maintenance Due Date Last Done Comments Colon Cancer Screening-Colonoscopy 1970 Depression Screening 1970 Hepatitis C Screening 1970 Hepatitis B Screening 1986 Regular Well Visit/Exam 18-64 1986 Covid-19 Vaccine ( season) 2023 01/17/2021, 04/11/2020, 03/14/2020 Breast Cancer Screening-Mammogram 07/19/2024 07/20/2023, 07/12/2022, 06/09/2018 Influenza Vaccine (#1) 2024 , 12/11/2020, 11/10/2019, Additional history exists DTaP/Tdap/Td Vaccine (3 - Td or Tdap) 01/07/2028 01/06/2018, 12/10/2017 Zoster Vaccine Completed 08/18/2020, 03/02/2020 Pneumococcal vaccine <65 Aged Out No longer eligible based on patient's age to complete this topic Procedures Procedure Name Priority Date/Time Associated Diagnosis Comments SCREENING MAMMOGRAM BILATERAL W JAE 06/09/2018 4:38 PM CDT from Last 3 Months or Most Recently Relevant to Health Maintenance Results * Screening Mammogram Bilateral W Jae (06/09/2018 4:38 PM CDT) Anatomical Region Laterality Modality Breast Bilateral Mammography 06/09/2018 4:55 PM CDT Narrative 06/14/2018 2:01 PM CDT Patient Name: FADIA ESCALERA Dr: Rena Velazquez MD D.O.B: 1970 Exam Date: 06/09/181637 Age: 47 Sex: Female MR#: [id number] Loc: RADIOLOGY REPORT Order #[id number] [facility] Christal Bilat Screening 3D Signed - MG BILATERAL DIGITAL SCREENING MAMMOGRAM 3D/2D WITH MEDIOLATERAL OBLIQUE CRANIOCAUDAL: 06/09/2018 The study was acquired using full field digital technology and interpreted from soft copy. 2D digital mammographic views, as well as 3D digital tomosynthesis were performed in the CC and MLO projections. CLINICAL: Routine mammogram. Patient denies any problems. Mother with breast cancer. No personal history of breast cancer. COMPARISONS: Comparison is made to exams dated: 05/05/2016 mammogram, 04/21/2015 mammogram, 02/18/2014 mammogram, and 12/26/2012 mammogram - [facility]. BREAST TISSUE: The tissue of both breasts is heterogeneously dense, which may obscure small masses. FINDINGS: There are benign appearing calcifications in both breasts. No significant masses, calcifications, or other findings are seen in either breast. There has been no significant interval change. IMPRESSION: BI-RAD 2 BENIGN There is no mammographic evidence of malignancy. A 1 year screening mammogram is recommended. The patient has been or will be contacted. We recommend annual screening mammography for women at average risk of breast cancer beginning at age 40, based on guidelines of the [employer] (ACR Practice Parameter for the Performance of Screening and Diagnostic Mammography) and [employer]. For women with an elevated risk of breast cancer, please refer to the ACR Practice Parameter for specific screening recommendations. The patient will be entered into a reminder system with a target due date of 1 year for her next screening exam. Electronically signed by: Freddy Gill M.D., md/torrey:06/14/2018 14:01:[address] Forms: Rin Nowak (R)), [facility] letter sent: Normal Exam Reading location: [facility] BI-RADS: 2 Benign REPORT ELECTRONICALLY SIGNED IN OTHER VENDOR SYSTEM Resulting Agency Comment O Procedure Note Freddy Gill MD - 06/14/2018 Patient Name: FADIA ESCALERA Dr: Rena Velazquez MD D.O.B: 1970 Exam Date: 06/09/18 1638 Age: 47 Sex: Female MR#: [id number] Loc: RADIOLOGY REPORT Order #[id number] [facility] Christal Bilat Screening 3D Signed - MG BILATERAL DIGITAL SCREENING MAMMOGRAM 3D/2D WITH MEDIOLATERAL OBLIQUE CRANIOCAUDAL: 06/09/2018 The study was acquired using full field digital technology andinterpreted from soft copy. 2D digital mammographic views, as well as 3D digital tomosynthesis were performed in the CC and MLO projections. CLINICAL: Routine mammogram. Patient denies any problems. Mother withbreast cancer. No personal history of breast cancer. COMPARISONS: Comparison is made to exams dated: 05/05/2016 mammogram,04/21/2015 mammogram, 02/18/2014 mammogram, and 12/26/2012 mammogram - [facility]. BREAST TISSUE: The tissue of both breasts is heterogeneously dense, whichmay obscure small masses. FINDINGS: There are benign appearing calcifications in both breasts. No significant masses, calcifications, or other findings are seen ineither breast. There has been no significant interval change. IMPRESSION: BI-RAD 2 BENIGN There is no mammographic evidence of malignancy. A 1 year screeningmammogram is recommended. The patient has been or will be contacted. We recommend annual screening mammography for women at average risk ofbreast cancer beginning at age 40, based on guidelines of the [employer] (ACR Practice Parameter for the Performance of Screening and Diagnostic Mammography) and [employer]. For women with an elevated risk of breast cancer, pleaserefer to the ACR Practice Parameter for specific screening recommendations. The patient will be entered into a reminder system with a target due dateof 1 year for her next screening exam. Electronically signed by: Freddy Gill M.D., md/torrey:06/14/2018 14:01:[address] Forms: Rin PEREZ (Jean)(Dara), [facility] letter sent: Normal Exam Reading location: [facility] BI-RADS: 2 Benign REPORT ELECTRONICALLY SIGNED IN OTHER VENDOR SYSTEM Rena Velazquez MD IMG MAMMO PROCEDURES Final Resu lt from Last 3 Months or Most Recently Relevant to Health Maintenance Insurance [facility] Advance Directives For more information, please contact: [phone] Documents on File Type Date Recorded Patient Neck Band Maker Expl anation ADVANCE DIRECTIVE 05/23/2013 12:00 AM ESPINOZA R OF ASSOCIATE MARKETING MANAGER FINANCIAL/MEDICAL Care Teams Costumed Character Entertainer Relationship Specialty Start Date End Date Dominique Lorenzo MD [address] [place] [address] PCP - General Family Medicine 12/16/23 Dominique Lorenzo MD [address] [place] [address] Referring Physician Family Medicine 12/07/22
--- OUTSIDE RECORDS SUMMARY | 2024-09-07 14:22 | XMS_ITS | Clinical Summary ---
Author Organization [facility] Address [address] [place] [address] Care Team Providers Care Retouching Operator Name Role Phone Toma Guardado MD Primary Care Provider Allergies No known active allergies Medications buPROPion XL 300 MG 24 hr tablet Take 300 mg by mouth daily. 5 09/18/2018 Active simvastatin 10 MG tablet Take 10 mg by mouth daily. 5 09/18/2018 Active estradiol 0.1 MG/24HR Place 0.1 patches onto the skin 2 (two) times a week. 10/28/2020 Active levothyroxine 25 MCG tablet Take 25 mcg by mouth daily. 10/06/2020 Active lisinopril 20 MG tablet Take 20 mg by mouth daily. 11/10/2020 Active Active Problems Problem Noted Date Diagnosed Date Essential (primary) hypertension 12/11/2020 Hyperlipidemia, mixed 12/11/2020 Immunizations Immunization Administration Dates Next Due MODERNA COVID-19 (12+) MRNA, LNP-S, PF, 100 MCG/ 0.5 ML DOSE 04/11/2020,03/14/2020 Family History Medical History Relation Comments CHF Father Hyperlipidemia Father Breast Cancer Maternal Grandmother Breast Cancer Mother Cancer Mother Breast Cancer Other 1 Breast Cancer Other 2 Relation Status Comments Father Maternal Grandmother Mother breast, ovarian and colon cancer Other 1 Other 2 Alive Social History Tobacco Use Types Packs/Day Years Used Date Smoking Tobacco: Never Smokeless Tobacco: Never Alcohol Use Standard Drinks/Week Comments Yes 0 (1 standard drink = 0.6 oz pur e alcohol) occasional Comments No Sex and Gender Information Value Date Recorded Sex Assigned at Not on file Legal Sex Female 8:21 PM CDT Gender Identity Not on file Sexual Orientation Not on file Last Filed Vital Signs Vital Sign Reading Time Taken Comments Blood Pressure 128/98 12/11/2020 3:46 PM CDT Pulse 71 12/11/2020 3:45 PM CDT Temperature 36.8 C (98.2 F) 09/25/2018 12:55 PM CDT Respiratory Rate 19 09/25/2018 1:00 PM CDT Oxygen Saturation 97% 12/11/2020 3:45 PM CDT Inhaled Oxygen Concentration - - Weight 97.1 kg (214 lb) 12/11/2020 3:45 PM CDT Height 172.7 cm (5' 8) 12/11/2020 3:45 PM CDT Body Mass Index 32.54 12/11/2020 3:45 PM CDT Plan of Treatment Health Maintenance Due Date Last Done Comments Annual Physical 08/02/1971 Hepatitis C 1986 DTaP, Tdap and Td Vaccines ( 1 - Tdap) 08/02/1987 Hepatitis B Vaccines (1 of 3 - 19+ 3-dose series) 08/02/1987 Pneumococcal Vaccine: 50+ Years (1 of 1 - PCV) 2018 Zoster Vaccines (2 of 2) 04/27/2020 03/02/2020 COVID-19 Vaccine (3 - 2023-2 5 season) 2023 04/11/2020, 03/14/2020 Mammogram Screening 08/02/2025 08/03/2023, 07/20/2023, 07/12/2022 Colorectal Cancer Screening Colonoscopy (10 Years) 09/25/2028 09/25/2018 Meningococcal B Vaccine Aged Out No l onger eligible based on patient's age to complete this topic Meningococcal Vaccine Aged Out No jules carmen eligible based on patient's age to complete this topic RSV Immunizations Under 20 Months Aged Out No longer eligible b ased on patient's age to complete this topic Procedures Procedure Name Priority Date/Time Associated Diagnosis Comments MG JONNYG W FREDO LT DIGI Routine 08/03/2023 1:06 PM CDT Abnormal mammogram COLONOSCOPY Routine 09/25/2018 11:16 AM CDT from Last 3 Months or Most Recently Relevant to Health Maintenance Results * MG DIAG W FREDO LT DIGI (08/03/2023 1:06 PM CDT) Anatomical Region Laterality Modality Breast Left Mammography, Rad iographic Imaging 08/03/2023 4:28 PM CDT Impressions 08/03/2023 4:31 PM CDT IMPRESSION: Calcifications identified at screening are judged benign on additional imaging. Routine follow-up in one year would now seem adequate. Recommendation: 1: Routine screening mammogram Bilateral in 1 Year Return for Routine Follow-Up: Yes Assessment: ACR BI-RADS Category 2 - Benign. Ordered By: TOMA GUARDADO Interpreted By: Joseph Reyna MD, 08/03/2023 4:28 PM Narrative 08/03/2023 4:31 PM CDT Examination: Digital left diagnostic mammogram with CAD. Clinical history: Follow-up, abnormal screening mammogram. Comparison: 07/20/2023. Technique:True lateral and spot magnification CC and true lateral left digital mammograms . The exam was interpreted with the use of a computer-aided detection (CAD) system. Additional 3-D Tomosynthesis images were acquired. Tissue density: The breast tissue is heterogeneously dense. Findings: The patient returned for additional diagnostic imaging to further evaluate the upper outer quadrant calcifications identified at screening. The additional views confirm the presence of the calcifications which lie near the 2:00 position projecting approximately 6.5 cm deep to the nipple on the true lateral view. Under spot magnification the calcifications appear rounded and somewhat amorphous in the CC projection. There is layering in the true lateral projection compatible with benign milk of calcium. No branching forms or suspicious pleomorphism is seen. There is no associated mass or architectural distortion. They are judged benign. Based on these findings, routine mammographic follow-up in one year would now seem adequate. These findings were discussed with the patient. us Toma Guardado MD MAMMO Final Result from Last 3 Months or Most Recently Relevant to Health Maintenance Insurance [facility] Care Teams Retouching Operator Relationship Specialty Start Date End Date Toma Guardado MD [address] [place] [address] PCP - General FAMILY PRACTICE 11/20/20
--- OUTSIDE RECORDS SUMMARY | 2024-09-07 14:22 | XMS_ITS | Referral Summary ---
Author Organization [facility] Address [address] [place] [address] Care Team Providers Care Transportation Escort Name Role Phone Dominique Lorenzo MD Unavailable [...] Add to Current Problems: NO ProblemStatus: Resolve Social History Tobacco Use Types Packs/Day Years [...] on file Legal Sex Female 8:12 PM FACILITY WORKER Gender Identity Not on file Sexual Orientation Not on file Last Filed Vital Signs Vital Sign Reading Time Taken Comments Blood Pressure 123/67 12/29/2023 3:10 PM FACILITY WORKER Pulse 67 12/29/2023 3:10 PM FACILITY WORKER Temperature 36.5 C (97.7 F) 12/29/2023 1:35 PM FACILITY WORKER Respiratory Rate 12 12/29/2023 3:10 PM FACILITY WORKER Oxygen Saturation 93% 12/29/2023 3:10 PM FACILITY WORKER Inhaled Oxygen Concentration - - Weight 95.3 kg (210 lb) 12/29/2023 8:15 AM FACILITY WORKER Height 172.7 cm (5' 8) 12/29/2023 8:15 AM FACILITY WORKER Body Mass Index 31.93 12/29/2023 8:15 AM FACILITY WORKER Plan of Treatment Not on file Procedures Procedure Name Priority Date/Time Associated Diagnosis [...] Velazquez MD D.O.B: 1970 Exam Date: 06/09/18 163 Age: 47 Sex: Female MR#: [id number] Loc: RADIOLOGY REPORT Order #[id number] [facility] Christal Bilat Screening 3D Signed - MG [...] mammogram, 02/18/2014 mammogram, and 12/26/2012 mammogram - [facility]. BREAST TISSUE: The tissue of both [...] age 40, based on guidelines of the [employer] [employer] (ACR Practice Parameter for the Performance of Screening and Diagnostic Mammography) and [place]. For women with an elevated risk of breast cancer, please refer to the ACR Practice Parameter for specific screening recommendations. The patient will be entered into a reminder system with a target due date of 1 year for her next screening exam. Electronically signed by: Freddy Gill M.D., md/torrey:06/14/2018 14:01:36 Pharmacy Stock Clerk: Rin Arizmendi)(Dara), [facility] letter sent: Normal Exam Reading location: [facility] [place] BI-RADS: 2 Benign REPORT ELECTRONICALLY SIGNED IN OTHER VENDOR SYSTEM Resulting Agency Comment O Procedure Note Freddy Gill MD - 06/14/2018 Patient Name: FADIA ESCALERA Dr: Rena Velazquez MD D.O.B: 1970 Exam Date: 06/09/18 1638 Age: 47 Sex: Female MR#: [id number] Loc: RADIOLOGY REPORT Order #[id number] [facility] Christal Bilat Screening 3D Signed - MG [...] mammogram, 02/18/2014 mammogram, and 12/26/2012 mammogram - [facility]. BREAST TISSUE: The tissue of both [...] age 40, based on guidelines of the [employer] [employer] (ACR Practice Parameter for the Performance of Screening and Diagnostic Mammography) and [employer]. For women with an elevated risk of breast cancer, pleaserefer to the ACR Practice Parameter for specific screening recommendations. The patient will be entered into a reminder system with a target due dateof 1 year for her next screening exam. Electronically signed by: Freddy Gill M.D., md/torrey:06/14/2018 14:01:36 Pharmacy Stock Clerk: Rin Arizmendi)(Dara), [facility] letter sent: Normal Exam Reading location: [facility] [place] BI-RADS: 2 Benign REPORT ELECTRONICALLY SIGNED IN OTHER VENDOR SYSTEM Rena Velazquez MD IMG MAMMO PROCEDURES Final Resu lt from Last 3 Months or Most Recently Relevant to Health Maintenance Insurance [facility] [address] [address] [place] [facility] [address] [place] [address] [place] Advance Directives For more information, please contact: [phone] Documents on File Type Date Recorded Patient Community Service Representative Expl anation ADVANCE DIRECTIVE 05/23/2013 12:00 AM ESPINOZA R OF FILM CLEANER FINANCIAL/MEDICAL Care Teams Transportation Escort Relationship Specialty Start Date End Date Dominique Lorenzo MD [address] [place] [address] PCP - General Family Medicine 12/16/23 Dominique Lorenzo MD [address] [place] [address] Referring Physician Family Medicine 12/07/22
== END 2024-09-07 14:20 | disposition home or self-care (01) ==
LOC: CHSIMG 14:19
PROVIDERS: PCP Family Medicine; Visit Provider Obstetrics & Gynecology
DX: Z12.31 Encounter for screening mammogram for malignant neoplasm of breast (principal); R92.8 Other abnormal and inconclusive findings on diagnostic imaging of breast
CPT/HCPCS: 77063; 77067

== ENCOUNTER 2024-09-25 09:43 | Outpatient (CLI) | payer BC, SELFPAY ==
--- NOTE | ~2024-09-25 | MMUS_ITS ---
EXAMINATION: MM diagnostic keegan LT w josue, US breast RT limited HISTORY: Left breast mass TECHNIQUE: Additional 3-D tomosynthesis images of the left breast were performed and synthetic 2-D images were generated. CAD analysis was submitted and interpreted. High resolution limited left breast ultrasound was performed. COMPARISON: 09/07/2024 BREAST PARENCHYMAL COMPOSITION:Not Dense. There are scattered areas of fibroglandular density. FINDINGS: MAMMOGRAPHIC FINDINGS: Spot compression views demonstrate persistent circumscribed 8 mm low-density mass in the upper, outer left subareolar region. ULTRASOUND: There is a 1.1 x 0.7 x 0.4 cm anechoic circumscribed cyst at the left breast subareolar region, which probably correlates with the mammographic finding. IMPRESSION: No evidence for malignancy. Benign left breast cyst, as detailed above. BI-RADS Category 2: Benign finding(s). Reviewed, dictated and finalized at [facility]. IMPRESSION: No evidence for malignancy. Benign left breast cyst, as detailed above. BI-RADS Category 2: Benign finding(s).
--- OUTSIDE RECORDS SUMMARY | 2024-09-25 10:05 | XMS_ITS | Clinical Summary ---
Author Organization [facility] Address [address] [place] [address] Care Team Providers Care Men'S Designer Name Role Phone Toma Guardado MD Primary [...] Most Recently Relevant to Health Maintenance Insurance [facility] Care Teams Men'S Designer Relationship Specialty Start Date End Date Toma Guardado MD [address] [place] [address] PCP - General FAMILY PRACTICE 11/20/20
--- OUTSIDE RECORDS SUMMARY | 2024-09-25 10:05 | XMS_ITS | Clinical Summary ---
Author Organization [facility] Address [address] [place] [address] Care Team Providers Care Sap Portal Consultant Name Role Phone Dominique Lorenzo MD Unavailable [...] on file Legal Sex Female 8:12 PM STITCH CLEANER Gender Identity Not on file Sexual Orientation Not on file Obstetrics History Last Filed Vital Signs Vital Sign Reading Time Taken Comments Blood Pressure 123/67 12/29/2023 3:10 PM STITCH CLEANER Pulse 67 12/29/2023 3:10 PM STITCH CLEANER Temperature 36.5 C (97.7 F) 12/29/2023 1:35 PM STITCH CLEANER Respiratory Rate 12 12/29/2023 3:10 PM STITCH CLEANER Oxygen Saturation 93% 12/29/2023 3:10 PM STITCH CLEANER Inhaled Oxygen Concentration - - Weight 95.3 kg (210 lb) 12/29/2023 8:15 AM STITCH CLEANER Height 172.7 cm (5' 8) 12/29/2023 8:15 AM STITCH CLEANER Body Mass Index 31.93 12/29/2023 8:15 AM STITCH CLEANER Plan of Treatment Health Maintenance Due Date [...] Date: 06/09/181637 Age: 47 Sex: Female MR#: [id number] Loc: RADIOLOGY REPORT Order #[id number] [facility] Christal Bilat Screening 3D Signed - MG [...] mammogram, 02/18/2014 mammogram, and 12/26/2012 mammogram - [facility]. BREAST TISSUE: The tissue of [...] age 40, based on guidelines of the [place] [employer] (ACR Practice Parameter for the Performance of Screening and Diagnostic Mammography) and [place] [employer]. For women with an elevated risk of breast cancer, please refer to the ACR Practice Parameter for specific screening recommendations. The patient will be entered into a reminder system with a target due date of 1 year for her next screening exam. Electronically signed by: Freddy Gill M.D., md/torrey:06/14/2018 14:01:36 Chicken Handler: Rin Nowak (R)), [facility] letter sent: Normal Exam Reading location: [facility] BI-RADS: 2 Benign REPORT ELECTRONICALLY SIGNED IN OTHER VENDOR SYSTEM Resulting Agency Comment O Procedure Note Freddy Gill MD - 06/14/2018 Patient Name: FADIA ESCALERA Dr: Rena Velazquez MD D.O.B: 1970 Exam Date: 06/09/18 1638 Age: 47 Sex: Female MR#: [id number] Loc: RADIOLOGY REPORT Order #[id number] [facility] Christal Bilat Screening 3D Signed - MG [...] mammogram, 02/18/2014 mammogram, and 12/26/2012 mammogram - [facility]. BREAST TISSUE: The tissue of both [...] age 40, based on guidelines of the [place] [employer] (ACR Practice Parameter for the Performance of Screening and Diagnostic Mammography) and [place] [employer]. For women with an elevated risk of breast cancer, pleaserefer to the ACR Practice Parameter for specific screening recommendations. The patient will be entered into a reminder system with a target due dateof 1 year for her next screening exam. Electronically signed by: Freddy Gill M.D., md/torrey:06/14/2018 14:01:36 Chicken Handler: Rin PEREZ (Jean)(Dara), [facility] letter sent: Normal Exam Reading location: [facility] BI-RADS: 2 Benign REPORT ELECTRONICALLY SIGNED IN OTHER VENDOR SYSTEM Rena Velazquez MD IMG MAMMO PROCEDURES Final Resu lt from Last 3 Months or Most Recently Relevant to Health Maintenance Insurance [facility] Advance Directives For more information, please contact: [phone] Documents on File Type Date Recorded Patient Etiologist Expl anation ADVANCE DIRECTIVE 05/23/2013 12:00 AM ESPINOZA R OF DOUBLE NEEDLE OPERATOR LOCKSTITCH FINANCIAL/MEDICAL Care Teams Sap Portal Consultant Relationship Specialty Start Date End Date Dominique Lorenzo MD [address] [place] [address] PCP - General Family Medicine 12/16/23 Dominique Lorenzo MD [address] [place] [address] Referring Physician Family Medicine 12/07/22
--- OUTSIDE RECORDS SUMMARY | 2024-09-25 10:05 | XMS_ITS | Clinical Summary ---
Author Organization [facility] Address [address] [place] [address] Care Team Providers Care Die Lay Out Worker Name Role Phone Unavailable Primary Care Provider Unavailabl e Source Comments [facility],non-owned Affiliates and Associated Physician Practices is amultiple site organization consisting of ambulatory clinics and hospital sitesin [place], [place], [place] and [place]. This disclosure is being madepursuant to the Care Everywhere program and may not contain all information available regarding this patient. Last updated 17.[facility] Airu Social History Tobacco Use Types Packs/Day Years [...] age to complete this topic Insurance [facility] Address: [facility] [id number] [place] [address]
--- OUTSIDE RECORDS SUMMARY | 2024-09-25 10:05 | XMS_ITS | Encounter Summary ---
Author Organization [facility] Address [address] [place] [address] Care Team Providers Care Bag Machine Tender Name Role Phone Unavailable Primary Care Provider Unavailabl e Encounter Details Date Type Department Care Team (Late st Contact Info) Description 11/05/2021 Lab Requisition [facility] [address] [place] [address] Otto Griffin MD [facility] DERMATOLOGY [address] [place] [phone] Social History Tobacco Use Types Packs/Day [...] AM CDT) Case Report Dermatopathology Report Case: [id number] Authorizing Provider: Otto Griffin MD Collected: 11/04/2021 12:00 AM Ordering Location: [facility] Received: 11/05/2021 10:10 AM Pathologist: [...] specimen consists of a shave biopsy measuring [id number]. Jar 0. 2 4:17 PM CDT DERMATOPATHOLOGY [...] characteristic determined by the Dermatopathology Laboratory at [facility], directed by Dr. Archana Whitney. These tests need not be, and therefore are not, approved by the [place] Food and Drug Administration. The tests are used for clinical purposes. Billing Codes Specimen Charges Stain Charges 25595 1 2 4:17 PM CDT DERMATOPATHOLOGY LABORATORY Embedded Images 2 4:17 PM CDT DERMATOPATHOLOGY LABORATORY Pathology/Cytolog y TISSUE SPECIMEN FROM SKIN / Unknown 11/04/2021 11/05/2021 10:10 AM CDT us Otto Griffin MD LAB - PATHOLOGY/CYTOLOGY OSITO GAMEZ Final Result DERMATOPATHOLOGY LABORATORY [facility] - Department of Dermatology [address] [place] [address], [facility] [phone] documented in this encounter Visit Diagnoses Not on filedocumented in this encounter
--- OUTSIDE RECORDS SUMMARY | 2024-09-25 10:05 | XMS_ITS | Encounter Summary ---
Author Organization [facility] Address [address] [place] [address] Care Team Providers Care Mine Safety Engineer Name Role Phone Dominique Lorenzo MD Primary Care Provider Encounter Details Date Type Department Care Team (Late st Contact Info) Description 04/03/2021 [facility], [address] [address] Camelia Moses MA Social History Tobacco Use [...] on filedocumented in this encounter Care Teams Mine Safety Engineer Relationship Specialty Start Date End Date Dominique Lorenzo MD [address] [place] [address] PCP - General FAMILY PRACTICE 11/20/20 documented as of this encounter
--- OUTSIDE RECORDS SUMMARY | 2024-09-25 10:06 | XMS_ITS | Patient Health Record ---
Author Organization [facility] dicine Address [address] [place] [address] Care Team Providers Care Canvas Shop Laborer Name Role Phone Dr. Dominique Lorenzo Primary Care Provider [phone] Unavailable [phone] Migration, Provider Unavailable Unavailable Allergies No Known Allergies Results Component Value Reference Range Notes Strep Gp A, DNA Probe (Alere ) Reviewed date:04/16/2024 09:09:51 AM Interpretation:Negative Performing Lab: Notes/Report: Negative MAMMOGRAM, SCREENING Reviewed date:09/18/2024 11:39:14 AM Interpretation: Performing Lab: Notes/Report: Reason For Referral Reason screening colonoscop y Diagnosis 1 Encounter for screen ing for malignant neoplasm of colon (Z12.11) Referral Organization [facility] Referring Provider First Name Dr. Fox Referring Provider Last Name Bj Referring Provider Speciality [facility] Med icine Referred Provider Specialty Gastroentero logy General Notes Roxane Garcia 09/18 11:35:59 AM CDT >Pt would like to go to Javier Castellanos who is GI [facility] 09/20/2024 03:05:13 PM CDT >Referral faxed to [facility] [phone] Referral Priority Routine Medications Medication SIG (Take, Route, Frequency, Duration) [...] ,sourcename : Pharmacy Source VFC Code: : Pfizer-Biontech Covid-19 Vaccine 1st dose Unknown 03/14/2020 Administered ,sourcename : Historical information -from other registry Source VFC Code: : Pfizer-Biontech Covid-19 Vaccine 1st dose Unknown 04/11/2020 Administered ,sourcename : Historical information -from other registry Source VF Code: : Shingrix Unknown 03/02/2020 Administered Shingrix Unknown 08/18/2020 Administered Tdap Unknown 01/06/2018 Administered ,sourcename : Historical information -from other registry Source [facility] Code: : Social History Tobacco Use: Social History Observation Description Date Details (start date - stop date) Never Smoker NA - NA Social History Tobacco Use: Social Info Question Answer Notes Tobacco Control (Standard) Tobacco use: Nonsmoker Problems Problem Type SNOMED Code ICD Code Onset Dates Problem Status W/U Status Risk Notes Problem Hypertrophy of breast (308871223) Hypertrophy of breast (N62) 023 Active confirmed Problem Depression (627854228) Depression, unspecified (F32.A) 022 Active confirmed Problem Pain (14387210) Pain, unspecified (R52) 021 Active confirmed Problem Hormone replacement therapy (653194117) Hormone replacement therapy (postmenopausa l) (Z79.890) Active confirmed Problem Acquired spondylolisthesis (653753646) Spondylolysis, 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) Active confirmed Problem Arthralgia of the ankle and/or foot (490855373) Pain in right ankle and joints of right foot (M25.571) Active confirmed Problem Pain of right knee region (finding) (586050847446235) Pain in right knee (M25.561) Active confirmed Problem Hyperlipidemia (20989989) Hyperlipidemia , unspecified (E78.5) Active confirmed Problem Imaging result abnormal (597180700) Abnormal findings on diagnostic imaging of other specified body structures (R93.89) Active confirmed Problem Nephrosclerosis (19957166) 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) Active confirmed was referred to cardio and was to get evaled with MRIoptimized for lumenal stenosis Problem Dietary management surveillance (015866909) Dietary counseling and surveillance (Z71.3) Active confirmed Problem Abnormal findings on diagnostic imaging of breast (308945458) Other abnormal and inconclusive findings on diagnostic imaging of breast (R92.8) Active confirmed Problem Pain in right leg (782738132) Pain in right leg (M79.604) Active confirmed Problem Cervicalgia (19355312) Cervicalgia (M54.2) Active confirmed Problem Hypothyroidism (29845877) Hypothyroidism , unspecified (E03.9) Active confirmed Problem Hemangioma of intra-abdominal structures (785713068) 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) Active confirmed Problem Thoracic spondylosis without myelopathy (304825585) Spondylosis without myelopathy or radiculopathy, thoracic region (M47.814) Active confirmed noted on CT from 06/2019 Problem Liver disease (232960921) Liver disease, unspecified (K76.9) Active confirmed Problem 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 Active confirmed Problem Essential hypertension (38485475) Essential (primary) hypertension (I10) 021 Active confirmed Problem Major depression, single episode, in complete remission (11962925) Major depressive disorder, single episode, in full remission (F32.5) 023 Active confirmed Vital Signs Heart Rate 84 /min 07/27/2024 Temperature 97.4 degrees Fahrenheit 07/27/2024 Respiratory Rate 18 /min 07/27/2024 Height-cm 172.72 cm 07/27/2024 Oximetry 98 % 07/27/2024 Blood pressure diastolic 82 mm Hg 07/27/2024 Weight-kg 97.61 kg 07/27/2024 Height 68.00 in 07/27/2024 Blood pressure systolic 134 mm Hg 07/27/2024 Weight 215.2 lbs 07/27/2024 BMI 32.72 kg/m2 07/27/2024 Encounters Encounter Location Date Provider Diagnosis [address] [address] 12/14/2023 Provider Migration [address] [address] 02/03/2024 Dr. Dominique Lorenzo Essential (primary) hypertension I10 ; Hyperlipidemia, unspecified E78.5 ; Hypothyroidism, unspecified E03.9 ; Prediabetes R73.03 ; Acute cough R05.1 and Acute non-recurrent sinusitis, unspecified location J01.[address] [address] 04/16/2024 Jolanta Tavera Acute sore throat J02.[address] [address] 07/27/2024 Jolanta Tavera Essential (primary) hypertension I10 ; Wellness examination Z00.00 ; Hyperlipidemia, unspecified E78.5 ; Hypothyroidism, unspecified E03.9 ; Prediabetes R73.03 ; Weight gain R63.5 and Menopausal symptom N95.[address] [address] 01/07/2024 Provider Migration [address] [address] 01/08/2024 Provider Migration [facility] [address] [place] [address] 07/06/2024 Dr. Dominique Lorenzo Hypothyroidism, unspecified E03.9 [...] pharyngitis. 07/06/2024 Hypothyroidism, unspecified (ICD-10 - E03.9) 07/27/2024 Essential (primary) hypertension (ICD-10 - I10) -BP is controlled at this time. Continue lisinopril m 07/27/2024 Wellness examination (ICD-10 - Z00.00) -Routine wellness exam, reviewed labwork - Colonoscopy up to date as of November 2023 - Due for mammogram following breast reduction surgery in December 2024 m 02/03/2024 Hyperlipidemia, unspecified (ICD-10 - E78.5) 02/03/2024 Essential (primary) hypertension (ICD-10 - I10) [facility] [place] 07/06/2024 Hyperlipidemia, unspecified (ICD-10 - E78.5) 02/03/2024 Hypothyroidism, unspecified (ICD-10 - E03.9) 07/27/2024 Hyperlipidemia, unspecified (ICD-10 - E78.5) -Tolerating simvastatin. No changes needed m 07/06/2024 Essential (primary) hypertension (ICD-10 - I10) 07/27/2024 Hypothyroidism, unspecified (ICD-10 - E03.9) -Levothyroxine 25mcg m 02/03/2024 Prediabetes (ICD-10 - R73.03) 02/03/2024 Acute cough (ICD-10 - R05.1) 07/27/2024 Prediabetes (ICD-10 - R73.03) -Last A1c was 5.7 and improved to 5.4 -Continue to work on weightloss m 07/06/2024 Liver disease, unspecified (ICD-10 - K76.9) 07/06/2024 Encounter for general adult medical examination without abnormal findings (ICD-10 - Z00.00) 07/27/2024 Weight gain (ICD-10 - R63.5) - [...] use of motivational resources (e.g., podcasts). m 02/03/2024 Acute non-recurrent sinusitis, unspecified location (ICD-10 - J01.90) 07/27/2024 Menopausal symptom (ICD-10 - N95.1) - Ongoing hot flashes, mood changes, fatigue, and weight gain possibly related to menopause and current estrogen dose. Ovaries likely no longer producing estrogen. - Consideration of adjusting estradiol dose or formulation. Recommendation to consult cook chill technician (Rena Velazquez at [facility]) regarding possible dose adjustment or alternative hormone [...] shingles vaccine status through state system or [employer]. Offer vaccine in future if not previously administered. Could have gotten it at [facility] possibly. Prescription - augmentin, large pill, for 10 days. Side effects: potential diarrhea, yeast infection. Instructions: take with food. - flonase nasal steroid spray, for eustachian tube and sinus relief. - Refills for all current medications sent to [facility] in [place], with a year's supply provided. Appointments - Follow-up appointment planned for July 2024. Plan Of Treatment Pending Test Test Name Order Date Ultrasound : Breast, left 09/18/2024 Mammogram, left breast 09/18/2024 Next Appt Details Provider Name:Jolanta dillard, 01/11/2025 09:00:00 AM, [address] [place], [address], [phone] Insurance Providers Payer Name Payer Address Payer Phone Subscriber Number Group Number Insured Name Patient Relationship to Insured Coverage Start Date Coverage End Date BCBSIL [address] [place] [address] [id number] Alaina Escalera Self - patient is the [...]
== END 2024-09-25 09:44 | disposition home or self-care (01) ==
PROVIDERS: PCP Family Medicine; Visit Provider Nurse Practitioner Family
DX: R92.8 Other abnormal and inconclusive findings on diagnostic imaging of breast (principal)
CPT/HCPCS: 76642; 77061; 77065; G0279

== ENCOUNTER 2025-01-25 07:31 | Outpatient (CLI) | payer BC, SELFPAY ==
--- OUTSIDE RECORDS SUMMARY | 2023-07-30 02:00 | XMS_ITS ---
Author Organization [facility] dicine Address [address] [place] [id number] Care Team Providers Care Learning And Development Manager Name Role Phone Dr. Dominique Lorenzo Primary Care Provider [phone] Dr. Carmine Looney Unavailable [phone] REASON FOR VISIT Spot #1 Hives on neck and chest Vital Signs Temperature 98.0 degrees Fahrenheit 07/30/19 24 Encounters Encounter Location Date Provider Diagnosis [address] [address] 07/30/2023 Dr. Carmine Looney Irritant contact dermatitis, unspecified cause L24.9 Assessments Encounter Date Diagnosis (ICD Code) Assessment Notes Treatment Notes Treatment Clinical Notes Section Notes 07/30/2023 Irritant contact dermatitis, unspecified cause (ICD-10 - L24.9) Plan Of Treatment Next Appt Details Provider Name:Jolanta Arcelia dillard, 08/06/2025 04:00:00 PM, [address] [place] [address], [id number], [phone] Progress Notes * Alaina ESCALERA AnnDOB:[birth year] (54 yo F)Acc No.[id number]:07/30/2023 Patient: Alaina Rowan Provider: Bassam Looney MD :1970 A ge:52 Y S ex:Female Date:07/30/2023 Address:[address] [place], [place]-[phone] Pcp:Dr. Dominique Lorenzo Subjective: * Chief Complaints: * S pot #1 Hives on neck and chest Objective: * Vitals: T emp: 98.0 F. Past Vitals:* 12/02/2022 BP: 136/88 mm Hg, HR: 90 /mi n, Oxygen sat %: 98 %, Wt: 205.01 lbs, Wt-k.99 kg * 11/24/2021 BP: 142/80 mm Hg, HR: 96 /mi n, Oxygen sat %: 96 %, Wt: 213.39 lbs, Wt-k.79 kg Assessment: * Assessment: 1. I rritant contact dermatitis, unspecified cause - L24.9 S pecify :Src Diagnosis Name: Irritant contact dermatitis * Electronic signature of Dr. Carmine Looney on 01/25/2025 at 07:35 AM LADLE PATCHER Sign off status: Pending * Provider: Bassam Looney MD Date: 0 07/30/2023 Generated for Sylvie hernandez/Destiny/Darionitting on: 1 03/28/2024 07:35 AM LADLE PATCHER
--- OUTSIDE RECORDS SUMMARY | 2023-08-16 10:00 | XMS_ITS ---
Author Organization [facility] dicine Address [address] [place] [address] Care Team Providers Care Social Work Supervisor Name Role Phone Dr. Dominique Lorenzo Primary Care Provider [phone] Jolanta Tavera Unavailable [phone] REASON FOR VISIT med check ($30 balance on account) Vital Signs Temperature 98.0 degrees Fahrenheit 08/16/19 24 Blood pressure systolic 140 mm Hg 08/16/19 24 Blood pressure diastolic 88 mm Hg 024 Heart Rate 81 /min 08/16/2023 Respiratory Rate 18 /min 08/16/2023 Weight 218.50 lbs 08/16/2023 Oximetry 98 % 08/16/2023 Weight-kg 99.11 kg 08/16/2023 Encounters Encounter Location Date Provider Diagnosis [address] [address] 08/16/2023 Jolanta Tavera Major depressive disorder, single episode, in full remission F32.5 ; Hormone replacement therapy (postmenopausal) Z79.890 ; Encounter for general adult medical examination without abnormal findings Z00.00 ; Hypertrophy of breast N62 ; Hyperlipidemia, unspecified E78.5 ; Dietary counseling and surveillance Z71.3 ; Hypothyroidism, unspecified E03.9 and Essential (primary) hypertension I10 Assessments Encounter Date Diagnosis (ICD Code) Assessment Notes Treatment Notes Treatment Clinical Notes Section Notes 08/16/2023 Major depressive disorder, single episode, in full remission (ICD-10 - F32.5) 08/16/2023 Hormone replacement therapy (postmenopausal) (ICD-10 - Z79.890) 08/16/2023 Encounter for general adult medical examination without abnormal findings (ICD-10 - Z00.00) 08/16/2023 Hypertrophy of breast (ICD-10 - N62) 08/16/2023 Hyperlipidemia, unspecified (ICD-10 - E78.5) 08/16/2023 Dietary counseling and surveillance (ICD-10 - Z71.3) 08/16/2023 Hypothyroidism, unspecified (ICD-10 - E03.9) 08/16/2023 Essential (primary) hypertension (ICD-10 - I10) Plan Of Treatment Next Appt Details Provider Name:Jolanta dillard, 08/06/2025 04:00:00 PM, [address] [facility], [place], [address], [phone] Progress Notes * Alaina ESCALERA AnnDOB:[birth year] (54 yo F)Acc No.[id number]:08/16/2023 Patient: Alaina Rowan Provider: Karlee Tavera NP :1970 A ge:53 Y S ex:Female Date:08/16/2023 Address:[address] [place], [place] [phone] Pcp:Dr. Dominique Lorenzo Subjective: * Chief Complaints: * M ed check ($30 balance on account) Objective: * Vitals: B P: 140/88 mm Hg, HR: 81 /min, RR: 18 /min, Temp: 98.0 F, Oxygen sat %: 98 %, Wt: 218.50 lbs, Wt-k.11 kg. Past Vitals:* 12/02/2022 BP: 136/88 mm Hg, HR: 90 /mi n, Oxygen sat %: 98 %, Wt: 205.01 lbs, Wt-k.99 kg * 11/24/2021 BP: 142/80 mm Hg, HR: 96 /mi n, Oxygen sat %: 96 %, Wt: 213.39 lbs, Wt-k.79 kg Assessment: * Assessment: 1. H ypothyroidism, unspecified - E03.9 S pecify :Src Diagnosis Name: Hypothyroidism, unspecified type 2 . H yperlipidemia, unspecified - E78.5 S pecify :Src Diagnosis Name: Hyperlipidemia 3 . M ajor depressive disorder, single episode, in full remission - F32.5 S pecify :Src Diagnosis Name: Major depressive disorder with single episode, in full remission 4 . E ssential (primary) hypertension - I10 5 . H ypertrophy of breast - N62 S pecify :Src Diagnosis Name: Gynecomastia, female 6 . E ncounter for general adult medical examination without abnormal findings - Z00.00 7 . D ietary counseling and surveillance - Z71.3 S pecify :Src Diagnosis Name: Weight loss counseling, encounter for 8 . H ormone replacement therapy (postmenopausal) - Z79.890 S pecify :Src Diagnosis Name: Postmenopausal HRT (hormone replacement therapy) * Electronic signature of Vinay Tavera on 01/25/2025 at 07:35 AM FOREIGN SERVICE OFFICER Sign off status: Pending * Provider: Karlee Tavera NP Date: 0 08/16/2023 Generated for Sylvie hernandez/Destiny/Sweetie on: 03/28/2024 07:35 AM FOREIGN SERVICE OFFICER
--- OUTSIDE RECORDS SUMMARY | 2023-12-14 03:00 | XMS_ITS ---
Author Organization [facility] Address [address] [place] [address] Care Team Providers Care Can Solderer Name Role Phone Dr. Dominique Lorenzo Primary Care Provider [phone] Migration, Provider Unavailable Unavailable REASON [place] VISIT [place] [place] Vaccine Route Administration Date Status Comme nts Influenza, quadrivalent (IIV4), split virus, 6-35 months dosage Unknown 12/14/2023 Administered ,sourcename : Pharmacy Source VFC Code: : Encounters Encounter Location Date Provider Diagnosis [facility] [address] [place] [address] 12/14/2023 Provider Migration Plan Of Treatment Next Appt Details Provider Name:Jolanta dillard, 08/06/2025 04:00:00 PM, [facility] [place], [address], [phone] Progress Notes * Alaina ESCALERA AnnDOB:[birth year] (54 yo F)Acc No.[id number]:12/14/2023 Patient: Greg goodsononeida Alaina Morin Provider: Bassam ybarra Migration :1970 A ge:53 Y S ex:Female Date:12/14/2023 Address:[facility] [place], [phone] Pcp:Dr. Dominique Lorenzo Subjective: * Chief Complaints: * E MR-Zelalem Objective: Past Vitals:* 08/16/2023 BP: 140/88 mm Hg, HR: 81 /mi n, Oxygen sat %: 98 %, Wt: 218.50 lbs, Wt-k.11 kg * 12/02/2022 BP: 136/88 mm Hg, HR: 90 /mi n, Oxygen sat %: 98 %, Wt: 205.01 lbs, Wt-k.99 kg Plan: * Immunizations: Influenza, quadrivalent (IIV4), split virus, 6-35 months dosage * Electronic signature of Prov ider Migration on 01/25/2025 at 07:35 AM COKE STILL CLEANER Sign off status: Pending * Provider: Bassam ybarra Migration Date: 02/12/2023 Generated for Sylvie hernandez/Destiny/Sweetie on: 03/28/2024 07:35 AM COKE STILL CLEANER
--- OUTSIDE RECORDS SUMMARY | 2024-01-07 03:00 | XMS_ITS ---
Author Organization [facility] Address [address] [place] [address] Care Team Providers Care Cook Helper Fruit Name Role Phone Dr. Dominique Lorenzo Primary Care Provider [phone] Migration, Provider Unavailable Unavailable REASON FOR VISIT EMR-Zelalem Encounters Encounter Location Date Provider Diagnosis [facility] [address] [place] [address] 01/07/2024 Provider Migration Plan Of Treatment Medication Medication Name Sig Start Date Stop Date Notes dexAMETHasone 6 MG Tablet 1 Oral every d ay; Duration: 06/01/2021 06/03/2021 Benzonatate 100 MG Capsule 1 Oral three times a day; Duration: 05/29/2022 06/07/2022 Doxycycline Monohydrate 100 MG Tablet 1 Oral every 12 hours; Duration: 05/29/2022 06/04/2022 predniSONE 20 MG Tablet 3 Oral every day ; Duration: 3 07/30/2023 2023 Benzonatate 200 MG Capsule 1 Oral three times a day; Duration: 0 06/17/2022 06/17/2022 Amoxicillin-Pot Clavulanate 875-125 MG Tablet 1 Oral two times a day; Duration: 05/13/2022 05/19/2022 Levothyroxine Sodium 25 MCG Tablet 1 Oral every day; Duration: 0 09/08/2023 09/08/2023 Rx Refill Request,discontinu ereason:Refilled Azithromycin 250 MG Tablet Oral; Duration: 0 06/17/2022 06/17/2022 Simvastatin 10 MG Tablet 1 Oral every evening; Duration: 0 03/12/2023 03/12/2023 Rx Refill Request,discontinu ereason:Refilled Lisinopril 20 MG Tablet 1 Oral every day ; Duration: 90 03/12/2023 03/12/2023 Rx Refill Request,discontinu ereason:Refilled Lisinopril 10 MG Tablet 1 Oral every day ; Duration: 0 09/30/2020 11/09/2020 ,discontinuereason :Discontinued Diflucan 150 MG Tablet 1 Oral; Duration: 1 05/29/202205/09 buPROPion HCl ER (XL) 300 MG Tablet Extended Release 24 Hour 1 Oral every day; Duration: 0 07/08/2023 07/08/2023 Rx Refill Request,discontinu ereason:Refilled Medrol 4 MG Tablet Therapy Pack Oral; Duration: 0 05/13/2022 05/28/2022 ,discontinuere ason :Discontinued Fluocinonide 0.05 % Ointment pea sized amount External three times a day; Duration: 7 07/30/2023 08/12/2023 Maalox Max 400-400-40 MG/5ML Suspension 1 Oral three times a day; Duration: 7 12/17/2020 12/23/2020 Next Appt Details Provider Name:Jolanta dillard, 08/06/2025 04:00:00 PM, [address] [place], [address], [phone] Progress Notes * Alaina ESACLERADOB:[birth year] (54 yo F)Acc No.[id number]:01/07/2024 Patient: Alaina ZARAGOZA :1970 A ge:53 Y S ex:Female Address:[address] [place] [address], [phone] * Refills Stop Levothyroxine Sodium Tablet, 25 MCG, Oral, 90, 1, every day, 0 Stop Lisinopril Tablet, 20 MG, Oral, 90, 1, every day, 90 Stop Lisinopril Tablet, 20 MG, Oral, 30, 1, every day, 30 Stop Simvastatin Tablet, 10 MG, Oral, 90, 1, every evening, 90 Stop Simvastatin Tablet, 10 MG, Oral, 90, 1, every evening, 90 Stop Simvastatin Tablet, 10 MG, Oral, 90, 1, every evening, 90 Stop buPROPion HCl ER (XL) Tablet Extended Release 24 Hour, 300 MG, Oral, 90, 1, every day, 90 Stop buPROPion HCl ER (XL) Tablet Extended Release 24 Hour, 300 MG, Oral, 90, 1, every day, 90 Stop Levothyroxine Sodium Tablet, 25 MCG, Oral, 90, 1, every day, 0 Stop Medrol Tablet Therapy Pack, 4 MG, Oral, 1, 0 Stop buPROPion HCl ER (XL) Tablet Extended Release 24 Hour, 300 MG, Oral, 90, 1, every day, 0 Stop Simvastatin Tablet, 10 MG, Oral, 90, 1, every evening, 90 Stop buPROPion HCl ER (XL) Tablet Extended Release 24 Hour, 300 MG, Oral, 90, 1, every day, 90 Stop Azithromycin Tablet, 250 MG, Oral, 6, 0 Stop Levothyroxine Sodium Tablet, 25 MCG, Oral, 1, every day, 0 Stop Levothyroxine Sodium Tablet, 25 MCG, Oral, 90, 1, every day, 90 Stop Levothyroxine Sodium Tablet, 25 MCG, Oral, 90, 1, every day, 90 Stop Levothyroxine Sodium Tablet, 25 MCG, Oral, 90, 1, every day, 90 Stop predniSONE Tablet, 20 MG, Oral, 20, 3, every day, 3 Stop Amoxicillin-Pot Clavulanate Tablet, 875-125 MG, Oral, 14, 1, two times a day, 7 Stop Levothyroxine Sodium Tablet, 25 MCG, Oral, 90, 1, every day, 90 Stop Lisinopril Tablet, 20 MG, Oral, 90, 1, every day, 90 Stop Simvastatin Tablet, 10 MG, Oral, 90, 1, every evening, 0 Stop Simvastatin Tablet, 10 MG, Oral, 90, 1, every evening, 0 Stop buPROPion HCl ER (XL) Tablet Extended Release 24 Hour, 300 MG, Oral, 90, 1, every day, 90 Stop Maalox Max Suspension, 400-400-40 MG/5ML, Oral, 210, 1, three times a day, 7 Stop Benzonatate Capsule, 100 MG, Oral, 30, 1, three times a day, 10 Stop dexAMETHasone Tablet, 6 MG, Oral, 3, 1, every day, 3 Stop Levothyroxine Sodium Tablet, 25 MCG, Oral, 90, 1, every day, 90 Stop Simvastatin Tablet, 10 MG, Oral, 90, 90 Stop buPROPion HCl ER (XL) Tablet Extended Release 24 Hour, 300 MG, Oral, 90, 1, every day, 90 Stop Levothyroxine Sodium Tablet, 25 MCG, Oral, 30, 1, every day, 30 Stop Simvastatin Tablet, 10 MG, Oral, 90, 90 Stop Lisinopril Tablet, 10 MG, Oral, 30, 1, every day, 0 Stop Lisinopril Tablet, 20 MG, Oral, 30, 1, every day, 30 Stop Levothyroxine Sodium Tablet, 25 MCG, Oral, 90, 1, every day, 90 Stop Lisinopril Tablet, 20 MG, Oral, 90, 1, every day, 90 Stop Simvastatin Tablet, 10 MG, Oral, 90, 1, every evening, 90 Stop buPROPion HCl ER (XL) Tablet Extended Release 24 Hour, 300 MG, Oral, 90, 1, every day, 90 Stop buPROPion HCl ER (XL) Tablet Extended Release 24 Hour, 300 MG, Oral, 90, 1, every day, 90 Stop Benzonatate Capsule, 200 MG, Oral, 30, 1, three times a day, 0 Stop Levothyroxine Sodium Tablet, 25 MCG, Oral, 90, 1, every day, 90 Stop Lisinopril Tablet, 20 MG, Oral, 90, 1, every day, 0 Stop Lisinopril Tablet, 20 MG, Oral, 90, 1, every day, 90 Stop Diflucan Tablet, 150 MG, Oral, 2, 1, 1 Stop Lisinopril Tablet, 20 MG, Oral, 90, 1, every day, 90 Stop Levothyroxine Sodium Tablet, 25 MCG, Oral, 90, 1, every day, 90 Stop Levothyroxine Sodium Tablet, 25 MCG, Oral, 90, 1, every day, 0 Stop predniSONE Tablet, 20 MG, Oral, 13, as directed, 0 Stop buPROPion HCl ER (XL) Tablet Extended Release 24 Hour, 300 MG, Oral, 90, 1, every day, 90 Stop Diflucan Tablet, 150 MG, Oral, 2, 1, 0 Stop Doxycycline Monohydrate Tablet, 100 MG, Oral, 14, 1, every 12 hours, 7 Stop Lisinopril Tablet, 20 MG, Oral, 90, 1, every day, 90 Stop Lisinopril Tablet, 20 MG, Oral, 90, 1, every day, 90 Stop Simvastatin Tablet, 10 MG, Oral, 90, 1, every evening, 90 Stop Simvastatin Tablet, 10 MG, Oral, 90, 1, every evening, 0 Stop Fluocinonide Ointment, 0.05 %, External, 60, pea sized amount, three times a day, 7 Stop Levothyroxine Sodium Tablet, 25 MCG, Oral, 90, 1, every day, 0 Stop Lisinopril Tablet, 10 MG, Oral, 30, 1, every day, 0 Subjective: * Chief Complaints: * E MR-Zelalem Objective: Past Vitals:* 08/16/2023 BP: 140/88 mm Hg, HR: 81 /mi n, Oxygen sat %: 98 %, Wt: 218.50 lbs, Wt-k.11 kg * 12/02/2022 BP: 136/88 mm Hg, HR: 90 /mi n, Oxygen sat %: 98 %, Wt: 205.01 lbs, Wt-k.99 kg * * Date:
--- OUTSIDE RECORDS SUMMARY | 2024-01-08 03:00 | XMS_ITS ---
Author Organization [facility] Address [address] [place] [id number] Care Team Providers Care Nutrition Consultant Name Role Phone Dr. Dominique Lorenzo Primary Care Provider [phone] Migration, Provider Unavailable Unavailable Allergies No Known Allergies REASON FOR VISIT EMR-Zelalem Medications Medication SIG (Take, Route, Frequency, Duration) Notes Start Date End Date Status Estradiol 0.025 MG/24HR Patch Weekly 2 Transdermal; Duration: 0 11/24/2021 Active Lisinopril 20 MG Tablet 1 Oral every day ; Duration: 0 04/20/2023 Active Levothyroxine Sodium 25 MCG Tablet 1 Oral every day; Duration: 0 10/13/2023 Active buPROPion HCl ER (XL) 300 MG Tablet Extended Release 24 Hour 1 Oral every day; Duration: 0 10/13/2023 Active Simvastatin 10 MG Tablet 1 Oral every ev ening; Duration: 0 11/11/2023 Active Social History Social History Additional Details Category Social Info Options Details Migrated Social History Migrated Social History Tobacco history:Never smoker Encounters Encounter Location Date Provider Diagnosis [facility] [address] [place] [address] 01/08/2024 Provider Migration Plan Of Treatment Next Appt Details Provider Name:Jolanta dillard, 08/06/2025 04:00:00 PM, [address] [place] [address], [place], [address], [phone] Progress Notes * Alaina ESCALERADOB:[birth year] (54 yo F)Acc No.[id number]:01/08/2024 Patient: Alaina ZARAGOZA :1970 A ge:53 Y S ex:Female Address:[address] [place] [address], [phone] Subjective: * Chief Complaints: * E MR-Zelalem * Surgical History: Hysterectomy 12/20/2019 * Social History: M igrated Social History: M igrated Social History: Tobacco history:Never smoker. * Medications: T akingbuPROPion HCl ER (XL) 300 MG Tablet Extended Release 24 Hour 1 Oral every day Estradiol 0.025 MG/24HR Patch Weekly 2 Transdermal Lisinopril 20 MG Tablet 1 Oral every day Lisinopril 20 MG Tablet 1 Oral every day Simvastatin 10 MG Tablet 1 Oral every evening Levothyroxine Sodium 25 MCG Tablet 1 Oral every day Taking buPROPion HCl ER (XL) 300 MG Tablet Extended Release 24 Hour 1 Oral every day Taking Estradiol 0.025 MG/24HR Patch Weekly 2 Transdermal Taking Lisinopril 20 MG Tablet 1 Oral every day Taking Lisinopril 20 MG Tablet 1 Oral every day Taking Simvastatin 10 MG Tablet 1 Oral every evening Taking Levothyroxine Sodium 25 MCG Tablet 1 Oral every day * Allergies: N .K.D.A. Objective: Past Vitals:* 08/16/2023 BP: 140/88 mm Hg, HR: 81 /mi n, Oxygen sat %: 98 %, Wt: 218.50 lbs, Wt-k.11 kg * 12/02/2022 BP: 136/88 mm Hg, HR: 90 /mi n, Oxygen sat %: 98 %, Wt: 205.01 lbs, Wt-k.99 kg * * Date:
--- NOTE | ~2025-01-25 | MMUS_ITS ---
EXAMINATION: MM diagnostic keegan LT w josue, US breast LT limited INDICATION: 54-year old female; follow-up left breast finding. COMPARISON: 09/25/2024 TECHNIQUE: Digital breast tomosynthesis True lateral and CC and MLO views of the LEFT breast were obtained with computer-aided detection to assist in interpretation of the study. FINDINGS: There are scattered areas of fibroglandular density. Previously reported mass in the upper outer retroareolar region is unchanged. No new mass, area of architectural distortion or abnormal calcifications seen. LEFT BREAST ULTRASOUND FINDINGS: Targeted evaluation of the area of concern was completed. 0.6 cm anechoic mass compatible with a cyst in the left subareolar region redemonstrated is unchanged. IMPRESSION: Benign LEFT breast cyst. No further investigation necessary. No new left breast abnormality. RECOMMENDATION: Annual screening bilateral mammography due September 2025. BI-RADS 2, BENIGN Reviewed, dictated and finalized at location A. R TECHNICIAN IMPRESSION: Benign LEFT breast cyst. No further investigation necessary. No new left breast abnormality. RECOMMENDATION: Annual screening bilateral mammography due September 2025. BI-RADS 2, BENIGN
--- OUTSIDE RECORDS SUMMARY | 2025-01-25 07:35 | XMS_ITS | Clinical Summary ---
Author Organization [facility] Address [address] [place] [address] Care Team Providers Care Associate Counsel Name Role Phone Unavailable Primary Care Provider Unavailabl e Source Comments [facility],non-owned Affiliates and Associated Physician Practices is amultiple site organization consisting of ambulatory clinics and hospital sitesin [place], [place], [place] and [place]. This disclosure is being madepursuant to the Care Everywhere program and may not contain all information available regarding this patient. Last updated 17.[facility] Social History Tobacco Use Types Packs/Day [...] of 3 - 19+ 3-dose series) 08/02/1987 PNEUMOCOCCAL VACCINE 50+ (1 of 1 - PCV) 2018 ZOSTER VACCINE (1 of 2) 2018 DEPRESSION SCREENING 02/08/2024 COVID-19 VACCINE (1 - 2024-2 6 season) 2024 INFLUENZA VACCINE (#1) 2024 HIB VACCINE Aged [...] patient's age to complete this topic Insurance [facility]
--- OUTSIDE RECORDS SUMMARY | 2025-01-25 07:35 | XMS_ITS | Encounter Summary ---
Author Organization [facility] Address [address] [place] [address] Care Team Providers Care Reeling And Tubing Machine Operator Name Role Phone Unavailable Primary Care Provider Unavailabl e Encounter Details Date Type Department Care Team (Late st Contact Info) Description 11/05/2021 Lab Requisition [facility] [address] [place] [address] Otto Griffin MD [facility] DERMATOLOGY [address] [place] [phone] Social History Tobacco Use Types Packs/Day [...] AM CDT) Case Report Dermatopathology Report Case: [id number] Authorizing Provider: Otto Griffin MD Collected: 11/04/2021 12:00 AM Ordering Location: [facility] Received: 11/05/2021 10:10 AM Pathologist: [...] specimen consists of a shave biopsy measuring [id number]. Jar 0. 2 4:17 PM CDT DERMATOPATHOLOGY [...] characteristic determined by the Dermatopathology Laboratory at [facility], directed by Dr. Archana Whitney. These tests need not be, and therefore are not, approved by the [place] Food and Drug Administration. The tests are used for clinical purposes. Billing Codes Specimen Charges Stain Charges 66738 1 2 4:17 PM CDT DERMATOPATHOLOGY LABORATORY Embedded Images 2 4:17 PM CDT DERMATOPATHOLOGY LABORATORY Pathology/Cytolog y TISSUE SPECIMEN FROM SKIN / Unknown 11/04/2021 11/05/2021 10:10 AM CDT us Otto Griffin MD LAB - PATHOLOGY/CYTOLOGY OSITO GAMEZ Final Result DERMATOPATHOLOGY LABORATORY [facility] - Department of Dermatology [address] [place] [address], [facility] [phone] documented in this encounter Visit Diagnoses Not on filedocumented in this encounter
--- OUTSIDE RECORDS SUMMARY | 2025-01-25 07:35 | XMS_ITS | Clinical Summary ---
Author Organization [facility] Address [address] [place] [address] Care Team Providers Care Front Attendant Name Role Phone Dominique Lorenzo MD Unavailable [...] on file Legal Sex Female 8:12 PM EMPLOYMENT EVALUATOR/CASE MANAGER Gender Identity Not on file Sexual Orientation Not on file Last Filed Vital Signs Vital Sign Reading Time Taken Comments Blood Pressure 123/67 12/29/2023 3:10 PM EMPLOYMENT EVALUATOR/CASE MANAGER Pulse 67 12/29/2023 3:10 PM EMPLOYMENT EVALUATOR/CASE MANAGER Temperature 36.5 C (97.7 F) 12/29/2023 1:35 PM EMPLOYMENT EVALUATOR/CASE MANAGER Respiratory Rate 12 12/29/2023 3:10 PM EMPLOYMENT EVALUATOR/CASE MANAGER Oxygen Saturation 93% 12/29/2023 3:10 PM EMPLOYMENT EVALUATOR/CASE MANAGER Inhaled Oxygen Concentration - - Weight 95.3 kg (210 lb) 12/29/2023 8:15 AM EMPLOYMENT EVALUATOR/CASE MANAGER Height 172.7 cm (5' 8) 12/29/2023 8:15 AM EMPLOYMENT EVALUATOR/CASE MANAGER Body Mass Index 31.93 12/29/2023 8:15 AM EMPLOYMENT EVALUATOR/CASE MANAGER Plan of Treatment Health Maintenance Due Date Last Done Comments Colon Cancer Screening-Colonoscopy 1970 Depression Screening 1968 Hepatitis C Screening 1968 Hepatitis B Screening 1986 Regular Well Visit/Exam 18-64 1986 Breast Cancer Screening-Mammogram 07/19/2024 07/20/2023, 07/12/2022, 06/09/2018 Covid-19 Vaccine ( season) 2024 01/17/2021, 04/11/2020, 03/14/2020 Influenza Vaccine (#1) 2024 3, 12/11/2020, 11/10/2019, Additional history exists DTaP/Tdap/Td Vaccine [...] Date: 06/09/181637 Age: 47 Sex: Female MR#: [id number] Loc: RADIOLOGY REPORT Order #[id number] [facility] Christal Bilat Screening 3D Signed - MG [...] mammogram, 02/18/2014 mammogram, and 12/26/2012 mammogram - [facility]. BREAST TISSUE: The tissue of both [...] age 40, based on guidelines of the [employer] (ACR Practice Parameter for the Performance of Screening and Diagnostic Mammography) and [employer]. For women with an elevated risk of breast cancer, please refer to the ACR Practice Parameter for specific screening recommendations. The patient will be entered into a reminder system with a target due date of 1 year for her next screening exam. Electronically signed by: Freddy Gill M.D., md/torrey:06/14/2018 14:01:36 Photocopying Equipment Repairer: Rin Nowak (R)), [facility] letter sent: Normal Exam Reading location: [facility] BI-RADS: 2 Benign REPORT ELECTRONICALLY SIGNED IN OTHER VENDOR SYSTEM Resulting Agency Comment O Procedure Note Freddy Gill MD - 06/14/2018 Patient Name: FADIA ESCALERA Dr: Rena Velazquez MD D.O.B: 1970 Exam Date: 06/09/18 1638 Age: 47 Sex: Female MR#: [id number] Loc: RADIOLOGY REPORT Order #[id number] [facility] Christal Bilat Screening 3D Signed - MG [...] mammogram, 02/18/2014 mammogram, and 12/26/2012 mammogram - [facility]. BREAST TISSUE: The tissue of both [...] age 40, based on guidelines of the [employer] (ACR Practice Parameter for the Performance of Screening and Diagnostic Mammography) and [employer]. For women with an elevated risk of breast cancer, pleaserefer to the ACR Practice Parameter for specific screening recommendations. The patient will be entered into a reminder system with a target due dateof 1 year for her next screening exam. Electronically signed by: Freddy Gill M.D., md/torrey:06/14/2018 14:01:36 Photocopying Equipment Repairer: Rin Arizmendi)(Dara), [facility] letter sent: Normal Exam Reading location: [facility] BI-RADS: 2 Benign REPORT ELECTRONICALLY SIGNED IN OTHER VENDOR SYSTEM us Rena Velazquez MD IMG MAMMO PROCEDURES Final Resu lt from Last 3 Months or Most Recently Relevant to Health Maintenance Insurance [facility] Advance Directives For more information, please contact: [phone] Documents on File Type Date Recorded Patient Geothermal Operations Manager Expl anation ADVANCE DIRECTIVE 05/23/2013 12:00 AM ESPINOZA Pena OF [employer]RET SAW OPERATOR FINANCIAL/MEDICAL Care Teams Front Attendant Relationship Specialty Start Date End Date Dominique Lorenzo MD [address] [place] [address] PCP - General Family Medicine 12/16/23 Dominique Lorenzo MD [address] [place] [address] Referring Physician Family Medicine 12/07/22
--- OUTSIDE RECORDS SUMMARY | 2025-01-25 07:35 | XMS_ITS | Encounter Summary ---
Author Organization [facility] Address [address] [place] [address] Care Team Providers Care Director Strategic Account Management Name Role Phone Dominique Lorenzo MD Primary Care Provider Encounter Details Date Type Department Care Team (Late st Contact Info) Description 04/03/2021 [facility] [address] [address] Camelia Moses MA Social History Tobacco Use [...] on filedocumented in this encounter Care Teams Director Strategic Account Management Relationship Specialty Start Date End Date Dominique Lorenzo MD [address] [place] [address] PCP - General FAMILY PRACTICE 11/20/20 documented as of this encounter
--- OUTSIDE RECORDS SUMMARY | 2025-01-25 07:36 | XMS_ITS | Patient Health Record ---
Author Organization [facility] Address [address] [place] [address] Care Team Providers Care Nailer Machine Name Role Phone Dr. Dominique Lorenzo Primary Care Provider [phone] Jolanta Tavera Unavailable [phone] Allergies No Known Allergies Results Component Value Reference Range Notes Strep Gp A, DNA Probe (Alere ) Reviewed date:04/16/2024 09:09:51 AM Interpretation:Negative Performing Lab: Notes/Report: Negative Mammogram, left breast Reviewed date:09/27/2024 01:32:08 PM Interpretation: Performing Lab: Notes/Report: MAMMOGRAM, SCREENING Reviewed date:09/18/2024 11:39:14 AM Interpretation: Performing Lab: Notes/Report: Reason For Referral Reason screening colonoscop y Diagnosis 1 Encounter for screen ing for malignant neoplasm of colon (Z12.11) Referral Organization [facility] Referring Provider First Name Dr. Fox Referring Provider Last Name Lorenzo Referring Provider Speciality Family [facility] icine Referred Provider Specialty Gastroentero logy General Notes Roxane Garcia 09/18 11:35:59 AM CDT >Pt would like to go to Javier Castellanos who is GI at [facility] 09/20/2024 03:05:13 PM CDT >Referral faxed to Axel REYES [phone] 09/27/2024 09:20:01 AM CDT >Pt called stating she had received call from [facility] about colonoscopy. Called [facility] and left message requesting update on referral, Alpa Samano 09/27/2024 11:02:00 AM CDT >Spoke with Axel REYES and they reached out to pt on 09/26/24 to schedule once authorization from insurance is complete Referral Priority Routine Medications Medication SIG (Take, Route, Frequency, Duration) Notes Start Date End Date Status Topiramate 25 MG Tablet 1 tablet at bedt sonia for 1 week and then increase 2 tablets Orally at bedtime; Duration: 30 days Active buPROPion HCl ER (XL) 300 MG Tablet Extended Release 24 Hour 1 tablet in the morning Orally Once a day; Duration: 90 days Active Levothyroxine Sodium 25 MCG Tablet 1 Oral every day; Duration: 90 days 10/13/2023 Active Lisinopril 20 MG Tablet 1 tablet Oral da aisha; Duration: 90 days Active Simvastatin 10 MG Tablet 1 tablet Oral e very evening; Duration: 90 days Active Estradiol 0.1 MG/24HR Patch Twice Weekly Transdermal; Duration: 84 Days Active Immunizations Vaccine Route Administration Date Status Comme nts Tdap Unknown 01/06/2018 Administered ,sourcename : Historical information -from other registry Source VFC Code: : Shingrix Unknown 03/02/2020 Administered Shingrix Unknown 08/18/2020 Administered Pfizer-Biontech Covid-19 Vaccine 1st dose Unknown 03/14/2020 Administered ,sourcename : Historical information -from other registry Source VFC Code: : Pfizer-Biontech Covid-19 Vaccine 1st dose Unknown 04/11/2020 Administered ,sourcename : Historical information -from other registry Source VFC Code: : Influenza, quadrivalent (IIV4), split virus, 6-35 months dosage IM Intramuscular 12/11/2020 Administered ,sourcename : N ew immunization record ,immstatus : Complete Influenza, quadrivalent (IIV4), split virus, 6-35 months dosage IM Intramuscular 12/02/2022 Administered ,sourcename : N ew immunization record ,immstatus : Complete Influenza, quadrivalent (IIV4), split virus, 6-35 months dosage Unknown 12/14/2023 Administered ,sourcename : Pharmacy Source VFC Code: : Social History Tobacco Use: Social History Observation Description Date Details (start date - stop date) Never Smoker NA - NA Social History Tobacco Use: Social Info Question Answer Notes Tobacco Control (Standard) Tobacco use: Nonsmoker Problems Problem Type SNOMED Code ICD Code Onset Dates Problem Status W/U Status Risk Notes Problem Major depression, single episode, in complete remission (89056494) Major depressive disorder, single episode, in full remission (F32.5) Active confirmed Problem Hormone replacement therapy (923929619) Hormone replacement therapy (postmenopausa l) (Z79.890) Active confirmed Problem Nephrosclerosis (16567792) 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) Active confirmed was referred to cardio and was to get evaled with MRIoptimized for lumenal stenosis Problem Pain in right leg (461343196) Pain in right leg (M79.604) Active confirmed Problem Cervicalgia (64449287) Cervicalgia (M54.2) Active confirmed Problem Acquired spondylolisthesis (208870139) Spondylolysis, 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) Active confirmed Problem Liver disease (610536320) Liver disease, unspecified (K76.9) Active confirmed Problem Recurrent oral aphthae (611959842) 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) Active confirmed Problem Hyperlipidemia (37764106) Hyperlipidemia , unspecified (E78.5) Active confirmed Problem Hemangioma of intra-abdominal structures (592060221) 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) Active confirmed Problem Hypertrophy of breast (338868325) Hypertrophy of breast (N62) Active confirmed Problem Essential hypertension (55738879) Essential (primary) hypertension (I10) Active confirmed Problem Hypothyroidism (07694561) Hypothyroidism , unspecified (E03.9) Active confirmed Problem Depression (850448164) Depression, unspecified (F32.A) Active confirmed Problem Dietary management surveillance (001469384) Dietary counseling and surveillance (Z71.3) Active confirmed Problem Abnormal findings on diagnostic imaging of breast (308530929) Other abnormal and inconclusive findings on diagnostic imaging of breast (R92.8) 024 Active confirmed Problem Pain (39912945) Pain, unspecified (R52) Active confirmed Problem Thoracic spondylosis without myelopathy (903360873) Spondylosis without myelopathy or radiculopathy, thoracic region (M47.814) 020 Active confirmed noted on CT from 06/2019 Problem Imaging result abnormal (969788400) Abnormal findings on diagnostic imaging of other specified body structures (R93.89) Active confirmed Problem Arthralgia of the ankle and/or foot (594209506) Pain in right ankle and joints of right foot (M25.571) Active confirmed Problem Pain of right knee region (finding) (210889868933644) Pain in right knee (M25.561) Active confirmed Vital Signs Heart Rate 84 /min 07/27/2024 Temperature 97.4 degrees Fahrenheit 07/27/2024 Respiratory Rate 18 /min 07/27/2024 Blood pressure diastolic 82 mm Hg 07/27/2024 Oximetry 98 % 07/27/2024 Height-cm 172.72 cm 07/27/2024 Weight-kg 97.61 kg 07/27/2024 Height 68.00 in 07/27/2024 Blood pressure systolic 134 mm Hg 07/27/2024 Weight 215.2 lbs 07/27/2024 BMI 32.72 kg/m2 07/27/2024 Encounters Encounter Location Date Provider Diagnosis [address] [address] 02/03/2024 Dr. Dominique Lorenzo Essential (primary) hypertension I10 ; Hyperlipidemia, unspecified E78.5 ; Hypothyroidism, unspecified E03.9 ; Prediabetes R73.03 ; Acute cough R05.1 and Acute non-recurrent sinusitis, unspecified location J01.[address] [address] 04/16/2024 Jolanta Tavera Acute sore throat J02.[address] [address] 07/27/2024 Jolanta Tavera Essential (primary) hypertension I10 ; Wellness examination Z00.00 ; Hyperlipidemia, unspecified E78.5 ; Hypothyroidism, unspecified E03.9 ; Prediabetes R73.03 ; Weight gain R63.5 and Menopausal symptom N95.[address] [address] 07/06/2024 Dr. Dominique Lorenzo Hypothyroidism, unspecified E03.9 ; Hyperlipidemia, unspecified E78.5 ; Essential (primary) hypertension I10 ; Liver disease, unspecified K76.9 and Encounter for general adult medical examination without abnormal findings Z00.[address] [address] 11/22/2024 Dr. Dominique Lorenzo Essential (primary) hypertension I10 ; Hyperlipidemia, unspecified E78.5 ; Hypothyroidism, unspecified E03.9 and Prediabetes R73.03 Assessments Encounter Date Diagnosis (ICD Code) Assessment [...] 02/03/2024 Essential (primary) hypertension (ICD-10 - I10) [facility] [place] 07/27/2024 Essential (primary) hypertension (ICD-10 - I10) -BP is controlled at this time. Continue lisinopril m 07/27/2024 Wellness examination (ICD-10 - Z00.00) -Routine wellness exam, reviewed labwork - Colonoscopy up to date as of November 2023 - Due for mammogram following breast reduction surgery in December 2024 m 11/22/2024 Hyperlipidemia, unspecified (ICD-10 - E78.5) 11/22/2024 Essential (primary) hypertension (ICD-10 - I10) 02/03/2024 Hypothyroidism, unspecified (ICD-10 - E03.9) 07/27/2024 Hyperlipidemia, unspecified (ICD-10 - E78.5) -Tolerating simvastatin. No changes needed m 07/06/2024 Hyperlipidemia, unspecified (ICD-10 - E78.5) 11/22/2024 Hypothyroidism, unspecified (ICD-10 - E03.9) 07/06/2024 Essential (primary) hypertension (ICD-10 - I10) 02/03/2024 Prediabetes (ICD-10 - R73.03) 07/27/2024 Hypothyroidism, unspecified (ICD-10 - E03.9) -Levothyroxine 25mcg 11/22/2024 Prediabetes (ICD-10 - R73.03) 07/27/2024 Prediabetes (ICD-10 - R73.03) -Last A1c was 5.7 and improved to 5.4 -Continue to work on [employer] 02/03/2024 Acute cough (ICD-10 - R05.1) 07/06/2024 [...] estradiol dose or formulation. Recommendation to consult fur buyer (Rena Velazquez at [place]) regarding possible dose adjustment or alternative hormone [...] shingles vaccine status through state system or [facility]. Offer vaccine in future if not previously administered. [facility] have gotten it at [facility]. Prescription - augmentin, large pill, for 10 days. Side effects: potential diarrhea, yeast infection. Instructions: take with food. - flonase nasal steroid spray, for eustachian tube and sinus relief. - Refills for all current medications sent to [facility] in [place], with a year's supply provided. Appointments - Follow-up appointment planned for July 2024. Plan Of Treatment Pending Test Test Name Order Date Ultrasound : Breast, left 10/02/2024 Ultrasound : Breast, left 09/18/2024 Hemoglobin A1c {Glycosylated} 11/22/2024 T4 Free 11/22/2024 CBC w Auto Diff 11/22/2024 Comprehensive Metabolic Panel 11/22/2024 Lipid Panel {Chol, Trig, HDL, LDL} 11/22 Thyroid Stimulating Hormone 11/22/2024 Next Appt Details Provider Name:Jolanta dillard, 08/06/2025 04:00:00 PM, [address] [facility], [place], [address], [phone] Insurance Providers Payer Name Payer Address Payer Phone Subscriber Number Group Number Insured Name Patient Relationship to Insured Coverage Start Date Coverage End Date [employer] [address] [place] [address] [id number] Alaina Escalera Self - patient is the insured Medical (General) History Medical History History ICD [...]
== END 2025-01-25 07:32 | disposition home or self-care (01) ==
PROVIDERS: PCP Family Medicine; Visit Provider Family Medicine
DX: R92.8 Other abnormal and inconclusive findings on diagnostic imaging of breast (principal); N60.02 Solitary cyst of left breast
CPT/HCPCS: 76642; 77061; 77065; G0279